=== PATIENT | female | born 1950 | race Caucasian/White ===

== ENCOUNTER 2018-10-21 16:57 | Inpatient (IN) ==
--- NOTE | 2018-10-21 17:11 | Emergency Department Note ---
Disposition Clinical Impression: Altered mental status Qualifiers: Altered mental status type: unspecified Qualified Code(s): R41.82 - Altered mental status, unspecified Disposition: Admitted As Inpatient Condition: Good Time of Disposition: 20:52 General Adult HPI - General Chief complaint: ED Neuro Symptoms/Deficit Stated complaint: Neuro Time Seen by Provider: 10/21/18 17:05 - History of Present Illness Pain Scale: 0 - Related Data Home Medications Medication Instructions Recorded Confirmed Glimepiride [Amaryl] 2 mg PO QAM 10/21/18 10/21/18 Pravastatin Sodium [Pravachol] 40 mg PO DAILY 10/21/18 10/21/18 Allergies Allergy/AdvReac Type Severity Reaction Status Date / Time No Known Allergies Allergy Verified 10/21/18 17:57 Past Medical History - Past Medical History Medical history: Reports: diabetes, hypertension - Social History Smoking Status: Never smoker Alcohol use: Reports: none Drug use: Reports: none Course Vital Signs Temperature 98.1 F 10/21/18 16:59 Pulse Rate 111 10/21/18 16:59 Respiratory Rate 20 10/21/18 16:59 Blood Pressure 103/71 10/21/18 16:59 O2 Sat by Pulse Oximetry 97 10/21/18 16:59 Temperature 97.5 F L 10/21/18 19:31 Pulse Rate 85 10/21/18 19:31 Respiratory Rate 16 10/21/18 19:31 Blood Pressure 117/77 10/21/18 19:31 O2 Sat by Pulse Oximetry 97 10/21/18 19:31 Oxygen Delivery Oxygen Delivery Room Air Medical Decision Making - Lab Data Result diagrams: 10/21/18 17:03 10/21/18 17:03 Lab Results 10/21/18 10/21/18 10/21/18 Range/Units 17:03 17:03 17:03 WBC 19.1 H (4.3-11.1) K/mcL RBC 4.82 (3.82-4.97) M/mcL Hgb 14.4 (11.5-15.4) g/dL Hct 42.9 (35.3-44.9) % MCV 89.0 (83.0-100.0) fL MCH 29.9 (28.0-33.3) pg MCHC 33.6 (31.6-35.5) g/dL RDW 12.3 (11.5-14.5) % Plt Count 273 (140-400) K/mcL MPV 9.6 (9.4-12.4) fL PT 15.0 H (9.4-12.1) Seconds INR 1.3 APTT 27.4 (26.0-36.0) Seconds Sodium 133 L (136-145) mEq/L Potassium 5.1 (3.5-5.1) mEq/L Chloride 101 (98-107) mEq/L Carbon Dioxide 20 L (23-29) mEq/L BUN 21 (8-23) mg/dL Creatinine 0.71 (0.60-1.20) mg/dL Est GFR ( Amer) > 60 (> 60) Est GFR (Non-Af Amer) > 60 (> 60) BUN/Creatinine Ratio 30 H (6-26) Glucose 135 H (70-105) mg/dL Calculated Osmolality 281 (280-300) Calcium 9.5 (8.6-10.3) mg/dL Total Bilirubin 1.4 H (0.3-1.0) mg/dL Direct Bilirubin 0.2 (0.0-0.2) mg/dL Indirect Bilirubin 1.2 (0.0-1.2) mg/dL AST 40 H (13-39) Units/L ALT 23 (7-52) Units/L Alkaline Phosphatase 93 (34-104) Units/L Troponin I < 0.03 (< 0.04) ng/mL Serum Total Protein 7.1 (6.4-8.9) g/dL Albumin 3.6 (3.5-5.7) g/dL Globulin 3.5 (2.4-3.5) g/dL Albumin/Globulin Ratio 1.0 L (1.1-2.2) Critical Care Time Critical Care Time: Yes Total Critical Care Time: 30 Attestation: The high probability of a clinically significant, sudden or life threatening deterioration of the [] system(s) required my full and direct attention, intervention and personal management. The aggregate critical care time was [] minutes. This time is in addition to time spent performing reported procedures but includes the following: [] Data Review and interpretation [] Patient assessment and monitoring of vital signs [] Documentation [] Medication orders and management Attestation Statement - Attestation Attestation: I reviewed the residents documentation and agree with the residents assessment and plan of care. I have personally had face to face time with the patient. (Brief History, Brief Exam, and MDM) I personally supervised and was present for the quezada/critical portions of the following procedures completed by the resident: (add procedures performed here). [id number] time provided I attest to supervising the resident physician's interpretation of the ECG Patient presents with right arm weakness. Symptoms started prior to her falling back to sleep at noon which is 5 hours prior to arrival. The patient does have a right arm drift on exam. Stroke alert activated
--- NOTE | 2018-10-21 17:15 | Emergency Department Note ---
Disposition Clinical Impression: Altered mental status Qualifiers: Altered mental status type: unspecified Qualified Code(s): R41.82 - Altered mental status, unspecified Disposition: Admitted As Inpatient Condition: Good Time of Disposition: 18:37 Neuro HPI - General Chief Complaint: ED Neuro Symptoms/Deficit Stated Complaint: Neuro Time Seen by Provider: 10/21/18 17:05 Source: patient Mode of arrival: private vehicle Limitations: no limitations Nursing Notes Reviewed: Yes Vital Signs Reviewed: Yes - History of Present Illness HPI Narrative: 68 yo woman with LKW approximately 12 noon today 10/21/18 who reported feeling a "heaviness" in her right arm and dropping objects without meaning to after waking from a nap today. She also feels lightheaded and has had decreased appetite since Sunday. She denies CP, SOB, LOC, disorientation, N/V, numbness or tingling anywhere. She denies recent illness, dysuria, symptoms of UTI and velasquez es to defecation. She has no known cardiac issues. No history of TIA or stroke or autoimmune disor ders. She traveled to [place] and [place] in July. No rash or bites. No dietary changes. She is not on anticoagulation. Patient has never smoked. - Related Data Home Medications: Home Medications Medication Instructions Recorded Confirmed Glimepiride [Amaryl] 2 mg PO QAM 10/21/18 10/21/18 Pravastatin Sodium [Pravachol] 40 mg PO DAILY 10/21/18 10/21/18 Allergies/Adverse Reactions: Allergies Allergy/AdvReac Type Severity Reaction Status Date / Time No Known Allergies Allergy Verified 10/21/18 17:57 All systems ED: reviewed and negative except as stated. Neurological: Reports: weakness (Right arm), other (Lightheadedness) Past Medical History - Past Medical History Attestation: Yes The following information was validated with the patient. Source: patient, old records reviewed Medical history: Reports: diabetes, hypertension - Social History Smoking Status: Never smoker Alcohol use: Reports: none Drug use: Reports: none Physical Exam PE Gen: AOx3, NAD HEENT: No lymphadenopathy. Pupils equal and reactive. Cardio: Regular rate and rhythm, no murmur, no peripheral edema, good perfusion to all extremities, no cyanosis Resp: Equal breath sounds bilaterally, no wheeze, no cough GI: Abdomen soft, nondistended, nontender to palpation. No ecchymoses, no rash. : No suprapubic tenderness or distention MSK: Normal ROM, no joint swelling or erythema Neuro: CNI-XII intact, strength and sensation WNL. Mild drift of right arm within 10 seconds only focal deficit on exam. Psych: Appropriate affect Course Course Narrative: VS stable. LKW approximately 5.[address] head ordered to evaluate for stroke, labs to evaluate for other causes of lightheadness and right arm "heaviness." - Consultations Consultation #1: [facility] neurologist consulted via tele. Slight deficit noted in holding right arm up. No acute intervention warranted. Time: 17:39 Vital Signs Temperature 98.1 F 10/21/18 16:59 Pulse Rate 111 10/21/18 16:59 Respiratory Rate 20 10/21/18 16:59 Blood Pressure 103/71 10/21/18 16:59 O2 Sat by Pulse Oximetry 97 10/21/18 16:59 Temperature 98.1 F 10/21/18 17:04 Pulse Rate 97 10/21/18 17:10 Respiratory Rate 17 10/21/18 18:51 Blood Pressure 111/83 10/21/18 18:51 O2 Sat by Pulse Oximetry 99 10/21/18 17:04 Oxygen Delivery Oxygen Delivery Room Air Neuro Symptoms/Deficit - MDM Narrative Medical decision making narrative: CT head negative for acute ischemia or hemorrhage. Glucose WNL. Leukocytosis to 19K; UA pending. Plan to admit patient for further workup. Patient agreed with plan and hospitalist accepted admit. - Medical Records Medical records reviewed: Yes I reviewed the patient's medical records. - Lab Data Lab results reviewed: Yes I reviewed the patient's lab results. Result diagrams: 10/21/18 17:03 10/21/18 17:03 Lab Results 10/21/18 10/21/18 10/21/18 Range/Units 17:03 17:03 17:03 WBC 19.1 H (4.3-11.1) K/mcL RBC 4.82 (3.82-4.97) M/mcL Hgb 14.4 (11.5-15.4) g/dL Hct 42.9 (35.3-44.9) % MCV 89.0 (83.0-100.0) fL MCH 29.9 (28.0-33.3) pg MCHC 33.6 (31.6-35.5) g/dL RDW 12.3 (11.5-14.5) % Plt Count 273 (140-400) K/mcL MPV 9.6 (9.4-12.4) fL PT 15.0 H (9.4-12.1) Seconds INR 1.3 APTT 27.4 (26.0-36.0) Seconds Sodium 133 L (136-145) mEq/L Potassium 5.1 (3.5-5.1) mEq/L Chloride 101 (98-107) mEq/L Carbon Dioxide 20 L (23-29) mEq/L BUN 21 (8-23) mg/dL Creatinine 0.71 (0.60-1.20) mg/dL Est GFR ( Amer) > 60 (> 60) Est GFR (Non-Af Amer) > 60 (> 60) BUN/Creatinine Ratio 30 H (6-26) Glucose 135 H (70-105) mg/dL Calculated Osmolality 281 (280-300) Calcium 9.5 (8.6-10.3) mg/dL Total Bilirubin 1.4 H (0.3-1.0) mg/dL Direct Bilirubin 0.2 (0.0-0.2) mg/dL Indirect Bilirubin 1.2 (0.0-1.2) mg/dL AST 40 H (13-39) Units/L ALT 23 (7-52) Units/L Alkaline Phosphatase 93 (34-104) Units/L Troponin I < 0.03 (< 0.04) ng/mL Serum Total Protein 7.1 (6.4-8.9) g/dL Albumin 3.6 (3.5-5.7) g/dL Globulin 3.5 (2.4-3.5) g/dL Albumin/Globulin Ratio 1.0 L (1.1-2.2) - Radiology Data Radiology results reviewed: Yes I reviewed the patient's radiology results. Head CT 10/21/18 17:09 IMPRESSION: No acute intracranial abnormality. Findings were discussed with Dr. Burris At 5:24 pm on 10/21/2018. D/ / James Lala MD / James Lala MD Interpreting Provider: James Lala MD - EKG Data EKG attestation: Yes I reviewed and interpreted this EKG. EKG shows normal: sinus rhythm Rate: normal Rhythm: NSR When compared to previous EKG there are: previous EKG unavailable Interpretation: normal EKG NIH Stroke Scale - Level of Consciousness LOC: Alert - LOC Questions LOC Questions: Answers both correctly - LOC Commands LOC Commands: Performs both correctly - Best Gaze Best Gaze: Normal - Visual Visual: No visual loss - Facial Palsy Facial Palsy: Normal - Motor Arms Motor Arm-Left: No drift for 10 seconds Motor Arm-Right: Drift, does NOT hit bed - Motor Legs Motor Leg-Left: No drift for 5 seconds Motor Leg-Right: No drift for 5 seconds - Limb Ataxia Limb Ataxia: Normal, No Ataxia - Sensory Sensory: Normal - Best Language Best Language: No aphasia - Dysarthria Dysarthria: Normal - Extinction and Inattention Extinction and Inattention: Normal - NIHSS Total Score NIHSS Total Score: 1 TPA Checklist - LKW: 3-4.5 hrs Add. Warnings/Precautions Patient/family understanding: The patient/family members have been counseled and understood the risk, benefit, and alternatives of treatment.
[2018-10-21 17:16] LABS: Hematocrit 42.9 % (35.3-44.9); Hemoglobin 14.4 g/dL (11.5-15.4); Mean Corpuscular HGB Conc 33.6 g/dL (31.6-35.5); Mean Corpuscular Hemoglobin 29.9 pg (28.0-33.3); Mean Platelet Volume 9.6 fL (9.4-12.4); Platelet Count 273 K/mcL (140-400); Red Blood Count 4.82 M/mcL (3.82-4.97); Red Cell Distribution Width 12.3 % (11.5-14.5); White Blood Count 19.1 K/mcL (4.3-11.1)
[2018-10-21 17:28] LABS: INR 1.3
[2018-10-21 17:31] LABS: Activated Partial Thrombo Time 27.4 Seconds (26.0-36.0)
[2018-10-21 17:46] LABS: Troponin I < 0.03 ng/mL (< 0.04)
[2018-10-21 18:13] LABS: Alanine Aminotransferase 23 Units/L (7-52); Albumin 3.6 g/dL (3.5-5.7); Alkaline Phosphatase 93 Units/L (34-104); Aspartate Amino Transferase 40 Units/L (13-39); BUN/Creatinine Ratio 30 (6-26); Bilirubin,Direct 0.2 mg/dL (0.0-0.2); Bilirubin,Indirect 1.2 mg/dL (0.0-1.2); Bilirubin,Total 1.4 mg/dL (0.3-1.0); Blood Urea Nitrogen 21 mg/dL (8-23); Calcium 9.5 mg/dL (8.6-10.3); Carbon Dioxide 20 mEq/L (23-29); Chloride 101 mEq/L (98-107); Globulin 3.5 g/dL (2.4-3.5); Glucose 135 mg/dL (70-105); Osmolality,Calculated 281 (280-300); Potassium 5.1 mEq/L (3.5-5.1); Sodium 133 mEq/L (136-145); Total Protein 7.1 g/dL (6.4-8.9); eGFR For African Americans > 60 (> 60); eGFR For Non-African Americans > 60 (> 60)
[2018-10-21 20:53] LABS: Bilirubin,Urine Negative (Negative); Blood,Urine Moderate (Negative); Clarity,Urine Cloudy (Clear); Color,Urine Yellow (Yellow); Glucose,Urine (UA) Normal (Normal); Ketones,Urine 15 mg/dL (Negative); Leukocyte Esterase,Urine Large (Negative); Nitrite,Urine Positive (Negative); PH,Urine 6.5 pH Units (5.0-8.0); Protein,Urine Trace mg/dL (Neg-Trace); Specific Gravity,Urine 1.007 (1.010-1.025)
[2018-10-21 20:55] LABS: Bacteria,Urine Many per hpf (None-Few); Hyaline Casts,Urine None Seen per lpf (None-Few); Squamous Epithelial Cell,Urine Many per lpf (None-Few); WBC,Urine TNTC per hpf (0-3)
[2018-10-21 21:05] LABS: Yeast,Urine Few per hpf (None Seen)
[2018-10-22] MEDS ORDERED: Naloxone 0.4 MG/ML INJ IVP PRN (00:04)
[2018-10-22] MEDS ORDERED: *HR* Dextrose 50 % in Water (Syg) 50 ML SYRINGE IVP PRN (00:06)
[2018-10-22] MEDS ORDERED: D5% in Water 1,000 ML IVC PRN (00:06)
[2018-10-22] MEDS ORDERED: Dextrose Gel 15 GM/37.5 ML TUBE PO PRN ×2 (00:06)
[2018-10-22] MEDS ORDERED: Gadolinium Contrast Agent (WT Based) IV PRN (00:09)
--- NOTE | 2018-10-22 00:40 | Internal Med History&Physical ---
Date of Encounter: 10/21/18 Time of Encounter: 23:20 Internal Medicine - H&P: HPI Chief complaint: Right upper extremity weakness Admitted From: Emergency Dept Plans for Post Hospital Care: Home History of present illness: Ms. Oakes is a 68 year old female Patient presented to the emergency department after experiencing right arm heaviness that began in the afternoon after she awoke from a nap. She says that she had been experiencing dizziness and lightheadedness that started 2 days ago. She spent most of the weekend in bed. She continued to have some dizziness and then after she had woken up during the afternoon on the day of her admission she noted this right arm heaviness. She has never had symptoms like this before. Her symptoms improve when she lays down however her arm still has a heaviness sensation. She has difficulty controlling it. She came to the emergency department for further evaluation. Emergency department vital signs within normal limits aside from elevated pulse of 111 and respiratory rate of 20. CBC notable for white count of 19.1 BMP notable for a glucose of 135. Total bilirubin elevated at 1.4 AST 40 ALT 23 Alkaline phosphatase 93. Initial troponin undetectable. Urinalysis showed low specific gravity, positive nitrite, large leukocyte esterase, numerous white blood cells. There is also many urine bacteria seen. EKG showed sinus rhythm, rate 93, QTC 443. No ischemic changes. CT head showed no acute intracranial abnormality. In the emergency department a stroke alert was called. The patient was outside of the when no for intervention. She was evaluated by [facility] neurology via telemetry stroke robot. They recommended diagnostic lab and workup and to be admitted to the hospital for further management. Upon my evaluation, patient is resting currently in hospital in no acute distress. She denies chest pain, abdominal pain, nausea, vomiting, diarrhea and constipation. She also denies dysuria. She states that her right arm heaviness has improved but is still different than her left arm. She denies difficulty swallowing. She has never had urinary tract infection before either. She denies significant family medical history. She is a full code. Past Med Surg Social Fam HX - Past Medical History Medical history: diabetes, hypertension - Past Surgical History Surgical History: no surgical history - Social History Smoking Status: Never smoker Smokeless Tobacco Status: No Alcohol use: none Drug use: none Internal Medicine - H&P: Meds Adipex-P 10/21/18 [History] Glimepiride [Amaryl] 2 mg PO QAM 10/21/18 [History] Pravastatin Sodium [Pravachol] 40 mg PO DAILY 10/21/18 [History] Allergy/AdvReac Type Severity Reaction Status Date / Time No Known Allergies Allergy Verified 10/21/18 17:57 All Systems PM: A 10-system review of systems was performed and is negative for pertinent findings except as documented above in the HPI. - Constitutional Vitals: Temp Pulse Resp BP Pulse Ox 98.2 F 104 16 112/76 96 10/21/18 23:29 10/21/18 23:29 10/21/18 23:29 10/21/18 23:29 10/21/18 23:29 General appearance: Present: cooperative, A&O X 3, pleasant, no acute distress, answers questions appropriately Exam: - - Head Head exam: Present: normal inspection - Eye Eye exam: Present: EOMI, normal appearance - ENT ENT exam: Present: normal exam - Neck Neck exam general surgery: Present: full ROM, supple. Absent: tenderness - Respiratory Respiratory exam: Present: CTAB. Absent: accessory muscle use, decreased breath sounds, rales, respiratory distress, rhonchi, wheezes - Cardiovascular Cardiovascular exam: Present: RRR. Absent: diastolic murmur, systolic murmur - GI/Abdominal GI/Abdominal exam: Present: normal bowel sounds, soft. Absent: tenderness - Extremities Exam Extremities exam: Present: warm, radial pulses palpable and symmetrical. Absent: calf tenderness, pedal edema, tenderness - Neurological Exam Neurological exam: Present: alert, CN II-XII intact, oriented X3, no focal deficits, strengths equal and symetr throughout, pronater drift. Absent: altered, motor sensory deficit, facial droop, speech deficit - Skin Skin exam: Present: dry, normal color, warm Internal Med - H&P Results - Labs CBC & Chem 7: 10/22/18 01:49 10/22/18 01:49 Labs: Short CBC 10/21/18 Range/Units 17:03 WBC 19.1 H (4.3-11.1) K/mcL Hgb 14.4 (11.5-15.4) g/dL Hct 42.9 (35.3-44.9) % Plt Count 273 (140-400) K/mcL BMP 10/21/18 17:03 Sodium 133 L Potassium 5.1 Chloride 101 Carbon Dioxide 20 L BUN 21 Creatinine 0.71 Glucose 135 H Calcium 9.5 Cardiac Enzymes 10/21/18 Range/Units 17:03 Troponin I < 0.03 (< 0.04) ng/mL Liver Function 10/21/18 Range/Units 17:03 Total Bilirubin 1.4 H (0.3-1.0) mg/dL Direct Bilirubin 0.2 (0.0-0.2) mg/dL AST 40 H (13-39) Units/L ALT 23 (7-52) Units/L Alkaline Phosphatase 93 (34-104) Units/L Albumin 3.6 (3.5-5.7) g/dL Urine 10/21/18 Range/Units 20:40 Urine Color Yellow (Yellow) Urine Clarity Cloudy A (Clear) Urine pH 6.5 (5.0-8.0) pH Units Ur Specific [place] 1.007 L (1.010-1.025) Urine Protein Trace (Neg-Trace) mg/dL Urine Glucose (UA) Normal (Normal) mg/dL - Impressions ITS Impressions Head CT 10/21/18 17:09 IMPRESSION: No acute intracranial abnormality. Findings were discussed with Dr. Burris At 5:24 pm on 10/21/2018. D/ / James Lala MD / James Lala MD Interpreting Provider: James Lala MD - Assessment and Plan (1) Right arm weakness Current Visit: Yes Status: Acute Assessment and plan: Possibly secondary to CVA. Management as below. (2) CVA (cerebral vascular accident) Current Visit: Yes Status: Acute Assessment and plan: Patient was evaluated by neurology [facility]. Recommended patient have echocardiogram, MRI head, MRA head and neck. They also recommended that the profile and A1c. Patient has passed bedside swallow eval. Obtain MRIs as requested follow-up results Lipid panel A1c PT and OT in the morning Qualifiers: CVA mechanism: unspecified Qualified Code(s): I63.9 - Cerebral infarction, unspecified (3) Diabetes Current Visit: Yes Status: Acute Assessment and plan: Patient is not an insulin dependent diabetic Monitor sugars ACHS Diabetic diet Low dose insulin sliding scale as needed Hold home meds. Check A1c in the morning Qualifiers: Diabetes mellitus type: type 2 Diabetes mellitus ferry terminal agent insulin use: without group home use Diabetes mellitus complication status: with hyperglycemia Qualified Code(s): E11.65 - Type 2 diabetes mellitus with hyperglycemia (4) Urinary tract infection Current Visit: Yes Status: Acute Assessment and plan: Patient's urinalysis positive for urinary tract infection. Likely related to her elevated white count. Started on ceftriaxone Follow-up urine culture when available Monitor for worsening signs of infection. Qualifiers: Urinary tract infection type: site unspecified Hematuria presence: with hematuria Qualified Code(s): N39.0 - Urinary tract infection, site not specified; R31.9 - Hematuria, unspecified (5) Elevated bilirubin Current Visit: Yes Status: Acute Assessment and plan: Patient has history of mildly elevated bilirubins in the past, she has slightly elevated AST as well. Patient denies history of liver disease. Repeat total bilirubin was decreased at 1.1. Continue to monitor (6) DVT prophylaxis Current Visit: Yes Status: Acute Assessment and plan: Subcutaneous heparin - Time Spent With Patient Total time spent is greater than 50% in coordination of care (as documented) at patient's floor/unit and/or counseling patient: Greater than 35 minutes
[2018-10-22] MEDS: cefTRIAXone 1,000 MG in Water for inj. (sterile) 10 ML IVP SCH (01:16)
[2018-10-22] MEDS: 0.9 % Sodium Chloride 1,000 ML IVC SCH ×2 (01:16→10:57)
[2018-10-22 02:20] LABS: Hematocrit 39.3 % (35.3-44.9); Hemoglobin 12.8 g/dL (11.5-15.4); Mean Corpuscular HGB Conc 32.6 g/dL (31.6-35.5); Mean Corpuscular Hemoglobin 29.9 pg (28.0-33.3); Mean Corpuscular Volume 91.8 fL (83.0-100.0); Mean Platelet Volume 9.8 fL (9.4-12.4); Platelet Count 245 K/mcL (140-400); Red Blood Count 4.28 M/mcL (3.82-4.97); Red Cell Distribution Width 12.2 % (11.5-14.5); White Blood Count 16.3 K/mcL (4.3-11.1)
[2018-10-22 02:27] LABS: Estimated Average Glucose 137 mg/dl
[2018-10-22 02:45] LABS: Alanine Aminotransferase 21 Units/L (7-52); Albumin 3.2 g/dL (3.5-5.7); Albumin/Globulin Ratio 0.9 (1.1-2.2); Alkaline Phosphatase 89 Units/L (34-104); Aspartate Amino Transferase 20 Units/L (13-39); BUN/Creatinine Ratio 32 (6-26); Bilirubin,Total 1.1 mg/dL (0.3-1.0); Blood Urea Nitrogen 21 mg/dL (8-23); Calcium 8.9 mg/dL (8.6-10.3); Carbon Dioxide 22 mEq/L (23-29); Chloride 102 mEq/L (98-107); Chol/HDL Ratio 2.8 (0-4.9); Cholesterol 105 mg/dL (< 200); Globulin 3.4 g/dL (2.4-3.5); Glucose 138 mg/dL (70-105); HDL Cholesterol 38 mg/dL (40-59); LDL Cholesterol,Calculated 55 mg/dL (0-99); Magnesium 1.8 mg/dL (1.6-2.6); Osmolality,Calculated 287 (280-300); Phosphorous 2.8 mg/dL (2.7-4.5); Potassium 3.6 mEq/L (3.5-5.1); Sodium 136 mEq/L (136-145); Total Protein 6.6 g/dL (6.4-8.9); Triglycerides 61 mg/dL (< 150); eGFR For African Americans > 60 (> 60); eGFR For Non-African Americans > 60 (> 60)
[2018-10-22] MEDS: *HR* Heparin 5,000 UNIT/ML VIAL SQ SCH ×2 (06:41→18:35)
[2018-10-22] MEDS: Insulin LISPRO 300 UNITS/3 ML VIAL SQ SCH ×4 (07:52→20:50)
[2018-10-22] MEDS ORDERED: Aspirin 325 MG TABLET PO ONE (09:20)
--- NOTE | 2018-10-22 09:24 | Event Note ---
Date of Encounter: 10/22/18 Time of Encounter: 09:22 Ms. Oakes is a 68 year old female Patient presented to the emergency department after experiencing right arm heaviness that began in the afternoon after she awoke from a nap. She says that she had been experiencing dizziness and lightheadedness that started 2 days ago. She spent most of the weekend in bed. She continued to have some dizziness and then after she had woken up during the afternoon on the day of her admission she noted this right arm heaviness. She has never had symptoms like this before. Her symptoms improve when she lays down however her arm still has a heaviness sensation. She has difficulty controlling it. She came to the emergency department for further evaluation. Seen and examined in the morning. She reported right side weakness has improved. Denies numbness/tingling/ataxia/aphasia/dysphagia. Pending echocardiogram and carotid Doppler, pending MRI/MRA of brain.
--- NOTE | 2018-10-22 16:07 | Electrocardiograph Report ---
[place] [id number] Test Date: 2018-10-21 Pat Name: Kaylee Oakes Department: EXAM10 Room: 3B37 Gender: F Abalone Diver: : 1950 Requested By: Luis Canchola Order Number: [id number] Reading MD: Celestine Choudhary Measurements Intervals [place] Rate: 93 P: 24 OR: 181 QRS: 0 QRSD: 97 T: 51 QT: 356 QTc: 443 Interpretive Statements Sinus rhythm Abnormal R-wave progression, early transition Electronically Signed On 10-22-2018 16:05:33 EDT by Celestine Choudhary
[2018-10-22] MEDS: Acetaminophen 325 MG TABLET PO PRN (16:29)
[2018-10-22] MEDS: Nystatin POWDER 30 GM BOTTLE TP SCH ×2 (18:34→20:29)
[2018-10-23 04:32] LABS: Hematocrit 38.3 % (35.3-44.9); Hemoglobin 12.6 g/dL (11.5-15.4); Mean Corpuscular HGB Conc 32.9 g/dL (31.6-35.5); Mean Corpuscular Hemoglobin 29.4 pg (28.0-33.3); Mean Corpuscular Volume 89.5 fL (83.0-100.0); Mean Platelet Volume 9.7 fL (9.4-12.4); Platelet Count 278 K/mcL (140-400); Red Blood Count 4.28 M/mcL (3.82-4.97); Red Cell Distribution Width 12.4 % (11.5-14.5); White Blood Count 17.4 K/mcL (4.3-11.1)
[2018-10-23 04:48] LABS: BUN/Creatinine Ratio 28 (6-26); Blood Urea Nitrogen 18 mg/dL (8-23); Calcium 8.6 mg/dL (8.6-10.3); Carbon Dioxide 25 mEq/L (23-29); Chloride 105 mEq/L (98-107); Glucose 157 mg/dL (70-105); Osmolality,Calculated 291 (280-300); Potassium 3.8 mEq/L (3.5-5.1); Sodium 138 mEq/L (136-145); eGFR For African Americans > 60 (> 60); eGFR For Non-African Americans > 60 (> 60)
[2018-10-23] MEDS: *HR* Heparin 5,000 UNIT/ML VIAL SQ SCH ×2 (05:58→18:01)
[2018-10-23 08:15] LABS: Chol/HDL Ratio 3.5 (0-4.9); Cholesterol 91 mg/dL (< 200); HDL Cholesterol 26 mg/dL (40-59); LDL Cholesterol,Calculated 49 mg/dL (0-99); Triglycerides 80 mg/dL (< 150)
--- NOTE | 2018-10-23 08:47 | Neurology - Consult Note ---
<Froy Apodaca - Last Filed: 10/23/18 11:17> Date of Encounter: 10/23/18 Time of Encounter: 09:32 Assessment and Plan (1) CVA (cerebral vascular accident) Current Visit: Yes Status: Acute - Patient presents with symptoms of right arm weakness 5 hours - Evidence of acute CVA on MRI/MRA of the head and neck without evidence of stenosis or occlusion - Carotid ultrasounds showed bilateral nonstenotic plaques - Risk factors include diabetes, hypertension. - Hgb A1c of 6.4%. Lipid panel shows a mildly low HDL - Echocardiogram also showed evidence of a patent foramen ovale with moderate right to left shunt -- The CVA does not appear to be embolic however. - Clinically, patient reports much improvement of her weakness but does still demonstrate a very mild right arm drift. NIH 1 - PT/OT has evaluated the patient and recommends outpatient therapy - Patient started on aspirin, statin. Of note she does admit to home aspirin and pravastatin Plan - Recommend continue PT/OT to improve strength - Minimalize risk factors including continued control of HTN and DM - Regarding medications, recommend continue aspirin but at full dose of 325mg and high intensity statin if tolerated. - Regarding the PFO, will defer surgical recommendations to primary team, however this does not appear to be an embolic stroke given location, pattern and appearance. She is lower risk for DVT with no symptoms and no history of arrythmia therefore will not recommend anticoagulation at this time. - Neurology will sign off at this time. Please reconsult or call with further questions. Thank you for allowing us to participate in Ms. Oakes' care. Qualifiers: CVA mechanism: unspecified Qualified Code(s): I63.9 - Cerebral infarction, unspecified (2) Patent foramen ovale Current Visit: Yes Status: Acute - As noted above on echocardiogram History of Present Illness Chief complaint: right arm "heaviness" HPI: Ms. Oakes is a 68 year old female with past medical history of diabetes and hypertension who presents to the emergency department with complaint of right arm heaviness as well as fatigue and lightheadedness starting 2 days prior to admission. Neurology was consulted for concerns of CVA. Patient states that on day of admission she laid down for a nap and woke up with her right arm feeling weak and heavy. She has never experienced symptoms like this in the past. She denies any symptoms of numbness, tingling, other weakness, vision or auditory changes. She has otherwise felt well with no symptoms of chest pains, difficulty breathing, recent illness, recent travel. She has had no exacerbating or relieving symptoms. Patient states that she normally does have fairly good control of her blood sugars and has never smoked. In the emergency department vital signs were significant for an elevated heart rate of 111 and a respiratory rate of 20. Laboratory results were significant for leukocytosis of 19.1, bicarbonate mildly low at 20 and sodium of 133. Total bilirubin was also mildly elevated at 1.4. Initial head CT did show no acute intracranial abnormality. [facility] stroke alert was called and medical management was advised. Further workup including head, neck MRI/MRA showed a small area of acute ischemic infarction in the high posterior left frontal lobe. It also showed non-stenosis of the vasculature. Echocardiogram did show evidence of a patent foramen ovale with moderate right to left shunt. [facility] and are currently recommending outpatient therapy. At time of my interview, patient reports that her symptoms have greatly improved. Her right arm she feels has full strength although still does have a very minor drift. She denies any symptoms of numbness, tingling. Past medical history: As above Past surgical history: Denies Social history: Never smoker, denies alcohol or drug use Family history: Noncontributory Past Med Surg Social Fam HX - Past Medical History Medical history: diabetes, hypertension - Past Surgical History Surgical History: no surgical history - Social History Smoking Status: Never smoker Smokeless Tobacco Status: No Alcohol use: none Drug use: none Medications and Allergies Adipex-P 10/21/18 [History] Glimepiride [Amaryl] 2 mg PO QAM 10/21/18 [History] Pravastatin Sodium [Pravachol] 40 mg PO DAILY 10/21/18 [History] Allergy/AdvReac Type Severity Reaction Status Date / Time No Known Allergies Allergy Verified 10/21/18 17:57 All Systems: The remainder of the systems were reviewed and are negative Review of Systems: - Constitutional: Admits to fatigue. Denies fevers, chills, weight loss, - Head/Neck: Denies METCALF, neck stiffness - EENT: Denies vision changes/blurriness, tinnitus, auditory changes, rhinorrhea, congestion, - CVS: Denies chest pain, palpitations, FRIEDMAN, - Pulm: Denies SOB, cough, sputum - GI: Denies abdominal pain, nausea, vomiting, diarrhea, constipation, - MSK: Admits to weakness Denies joint pain, limited ROM - Skin: Denies rashes, ulcers, color changes, - Neuro: Denies METCALF, paresthesias, focal deficits, ataxia, Physical Examination - Vital Signs Vital Signs: Initial Vital Signs Temp Pulse Resp BP Pulse Ox 98.1 F 111 20 103/71 97 10/21/18 16:59 10/21/18 16:59 10/21/18 16:59 10/21/18 16:59 10/21/18 16:59 - Constitutional General appearance: comfortable, younger than stated age - Neurologic Sensorimotor examination: intact Detailed motor examination: grossly full strength in all extremities Motor examination - right side: 4/5: hip flexors, tibialis Anterior, 5/5: deltoids, biceps, triceps, wrist flexion, wrist extension, signal repairer, toe extension (EHL), plantarflexion Motor examination - left side: 4/5: hip flexors, tibialis Anterior, 5/5: deltoids, biceps, triceps, signal repairer, toe extension (EHL), plantarflexion Detailed sensory examination: intact Posture: other (none) Reflex and gait examination: intact Reflexes: Biceps: 2+, Brachioradialis: 2+, Patella: 2+ Mental Status Examination: awake, alert, oriented to person, oriented to place, oriented to time, follows commands appropriately, answers questions appropriately, no agnosia, no aphasia, no aproxia Cranial nerve examination: PERRL, EOMI, sensory to face intact, mastication intact, no facial asymmetry is present, no dysarthria, hearing is intact symmetrically, soft palate elevates bilaterally upon phonation, flexes SCM and trapezius muscles symmetrically with full power, tongue protrudes midline, no atrophy or facial fasiculations present Cerebellar examination: no dysmetria, performs finger to nose and heel to maloney symmetrically without ataxia Ataxia: right upper extremity (mild arm drift when held out) Results - Laboratory Findings CBC and BMP: 10/23/18 03:58 10/23/18 03:58 Abnormal lab findings: Abnormal lab results WBC 17.4 K/mcL (4.3-11.1) H 10/23/18 03:58 PT 15.0 Seconds (9.4-12.1) H 10/21/18 17:03 Sodium 133 mEq/L (136-145) L 10/21/18 17:03 Carbon Dioxide 22 mEq/L (23-29) L 10/22/18 01:49 BUN/Creatinine Ratio 28 (6-26) H 10/23/18 03:58 Glucose 157 mg/dL (70-105) H 10/23/18 03:58 POC Glucose 159 mg/dL (70-99) H 10/22/18 19:33 Hemoglobin A1c 6.4 % (-5.6) H 10/22/18 01:49 Total Bilirubin 1.1 mg/dL (0.3-1.0) H 10/22/18 01:49 AST 40 Units/L (13-39) H 10/21/18 17:03 Albumin 3.2 g/dL (3.5-5.7) L 10/22/18 01:49 Albumin/Globulin Ratio 0.9 (1.1-2.2) L 10/22/18 01:49 HDL Cholesterol 26 mg/dL (40-59) L 10/23/18 03:58 Urine Clarity Cloudy (Clear) A 10/21/18 20:40 Ur Specific [place] 1.007 (1.010-1.025) L 10/21/18 20:40 Urine Ketones 15 mg/dL (Negative) H 10/21/18 20:40 Urine Blood Moderate (Negative) H 10/21/18 20:40 Urine Nitrite Positive (Negative) A 10/21/18 20:40 Urine Urobilinogen 2.0 mg/dL (Normal) H 10/21/18 20:40 Ur Leukocyte Esterase Large (Negative) H 10/21/18 20:40 Urine Microscopic WBC TNTC per hpf (0-3) H 10/21/18 20:40 Ur Squamous Epith Cells Many per lpf (None-Few) H 10/21/18 20:40 Urine Bacteria Many per hpf (None-Few) H 10/21/18 20:40 Urine Yeast Few per hpf (None Seen) H 10/21/18 20:40 Ur Culture Indicated? YES (NO) A 10/21/18 20:40 Consult Discharge Plan - Plan Additional Instructions: Wound care- cleanse area with soap and water in the shower daily, home health to re-pack with 1/4 in plain gauze, cover with dry dressing and tape to secure. Complete daily and prn if soiled. Referrals: Willow Aguilar CNP [Advanced Practice Nurse] - 10/29/18 4:00 pm Yadi Delgadillo CNP [Primary Care Provider] - (Appointment has been requested) <Darnell Miller - Last Filed: 10/23/18 16:52> Date of Encounter: 10/23/18 Assessment and Plan (1) CVA (cerebral vascular accident) Current Visit: Yes Status: Acute The chart Was reviewed, the patient was seen and examined independently. Patient was discussed with the neurology resident. I have personally performed a [id number] assessment of the patient and have reviewed the PA/RETURNS PROCESSOR note. My impressions are as follows: I agree with his assessment and plan as outlined above. I agree that this is a low likelihood of a cardioembolic event considering the location of the infarct as well as the pattern of periventricular white matter change. I agree with increasing to full dose aspirin 325 mg daily along with a high intensity statin and management of her diabetes. I will reevaluate her in the morning. Qualifiers: CVA mechanism: unspecified Qualified Code(s): I63.9 - Cerebral infarction, unspecified History of Present Illness HPI: Chart was reviewed, patient was seen and examined independently. Case was discussed with Dr. Apodaca I agree with his assessment of the history of present illness as documented above. MRI scan of the brain was reviewed personally she does reveal a small area of acute infarct diffusion imaging in the high posterior left frontal region. The infarct is deep into the white matter so I therefore suggest this is a small vessel event. Echocardiogram did not show evidence of a PFO with a moderate right to left shunt. However again I do not feel this was a cardioembolic phenomenon. She does have a history of diabetes and hypertension. She also has an elevated temperatures likely due to an abscessed region of the right buttock. Not convinced this has any bearing on her acute cerebral infarct. MRI/MRA scans of the head and neck were normal. All Systems: The remainder of the systems were reviewed and are negative Review of Systems: Balance of the systems review is negative. Physical Examination - Vital Signs Vital Signs: Initial Vital Signs Temp Pulse Resp BP Pulse Ox 98.1 F 111 20 103/71 97 10/21/18 16:59 10/21/18 16:59 10/21/18 16:59 10/21/18 16:59 10/21/18 16:59 - Exam Exam: General Examination: *CONSTITUTIONAL: normal *GENERAL APPEARANCE OF PATIENT appears healthy and well groomed *EYES: pupils equal, round, reactive to light and accommodation, conjunctiva clear without masses or ulcerations, fundi normal. *CARDIOVASCULAR no peripheral edema, distal temperature normal, dorsalis pedis pulses normal. Refer to vital signs Musculoskeletal: *GAIT AND STATION normal, with normal Romberg testing, no abnormalities such as broad base gait or spasticity *ASSESSMENT OF MUSCLE STRENGTH IN THE UPPER AND LOWER EXTREMITIES reveals 4/5 strength of the right deltoid, right bicep, right tricep, right signal repairer strength. She has full strength of the left upper extremity. hip flexors ,anterior tibialis, dorsoflexion of the lower extremities was normal. *MUSCLE TONE IN THE UPPER AND LOWER EXTREMITIES normal. No abnormal movements, fasciculations or atrophy identified. Neurological: *ORIENTATION to time and place *RECURRENT AND REMOTE MEMORY intact *ATTENTION AND CONCENTRATION are normal *LANGUAGE FUNCTION no significant aphasia or dysarthia was noted. *FUND OF KNOWLEDGE aware of current events, past history, vocabulary *MENTAL attention span and concentration normal. *CN II optic fundi were normal, no papilledema noted. *CN III,IV, PERRLA extraocular eye movements were full, no nystagmus and no ptosis noted. *CN V shows normal sensation and jaw opens symmetrically. *CN VII shows normal facial movement symmetrically, upper and lower bilaterally. *CN VIII shows no significant hearing loss on examination in the office. *CN IX,,X palate elevated symmetrically and normal gag reflex was noted. *CN XI normal strength in the sternocleidomastoid muscles, symmetrical shoulder shrugging. *CN XII tongue protruded in the midline, with normal strength and movement. *SENSORY EXAMINATION pinprick sensation intact, and light touch(vibration sense). *REFLEXES: deep tendon reflexes were normal and symmetrical , grade 2/4 diffusely, no pathological reflexes were noted. *CEREBELLAR TESTING normal finger to nose, heel/knee/maloney, and tandem walk. *PAIN LEVEL -0 Results - Laboratory Findings CBC and BMP: 10/23/18 03:58 10/23/18 03:58 Abnormal lab findings: Abnormal lab results WBC 17.4 K/mcL (4.3-11.1) H 10/23/18 03:58 Neutrophils # 15.2 K/mcL (1.6-8.9) H 10/23/18 03:58 Monocytes # 1.4 K/mcL (0.0-1.3) H 10/23/18 03:58 PT 15.0 Seconds (9.4-12.1) H 10/21/18 17:03 Sodium 133 mEq/L (136-145) L 10/21/18 17:03 Carbon Dioxide 22 mEq/L (23-29) L 10/22/18 01:49 BUN/Creatinine Ratio 28 (6-26) H 10/23/18 03:58 Glucose 157 mg/dL (70-105) H 10/23/18 03:58 POC Glucose 159 mg/dL (70-99) H 10/22/18 19:33 Hemoglobin A1c 6.4 % (-5.6) H 10/22/18 01:49 Total Bilirubin 1.1 mg/dL (0.3-1.0) H 10/22/18 01:49 AST 40 Units/L (13-39) H 10/21/18 17:03 Albumin 3.2 g/dL (3.5-5.7) L 10/22/18 01:49 Albumin/Globulin Ratio 0.9 (1.1-2.2) L 10/22/18 01:49 HDL Cholesterol 26 mg/dL (40-59) L 10/23/18 03:58 Urine Clarity Cloudy (Clear) A 10/21/18 20:40 Ur Specific [place] 1.007 (1.010-1.025) L 10/21/18 20:40 Urine Ketones 15 mg/dL (Negative) H 10/21/18 20:40 Urine Blood Moderate (Negative) H 10/21/18 20:40 Urine Nitrite Positive (Negative) A 10/21/18 20:40 Urine Urobilinogen 2.0 mg/dL (Normal) H 10/21/18 20:40 Ur Leukocyte Esterase Large (Negative) H 10/21/18 20:40 Urine Microscopic WBC TNTC per hpf (0-3) H 10/21/18 20:40 Ur Squamous Epith Cells Many per lpf (None-Few) H 10/21/18 20:40 Urine Bacteria Many per hpf (None-Few) H 10/21/18 20:40 Urine Yeast Few per hpf (None Seen) H 10/21/18 20:40 Ur Culture Indicated? YES (NO) A 10/21/18 20:40
[2018-10-23] MEDS ORDERED: Aspirin 81 MG TAB.CHEW PO SCH (09:00)
[2018-10-23] MEDS: cefTRIAXone 1,000 MG in Water for inj. (sterile) 10 ML IVP SCH (09:44)
[2018-10-23] MEDS: Insulin LISPRO 300 UNITS/3 ML VIAL SQ SCH ×4 (09:46→21:14)
[2018-10-23] MEDS: Nystatin POWDER 30 GM BOTTLE TP SCH ×2 (09:46→15:00)
--- NOTE | 2018-10-23 10:14 | Internal Med Progress Note ---
Hospitalist Progress Note - Encounter Date of Encounter: 10/23/18 Time of Encounter: 10:14 - Subjective Interval History: Patient was seen and examined at bedside-patient states that her right arm has returned to normal that she feels fine however overnight it appears -right buttock cellulitis had a wound opened with a large amount of foul-smelling purul ent drainage patient states it saturate her bed and her clothes that she had her take a shower. Room does have a foul odor and upon inspection patient has a small wound in crease of right buttocks with large amount of brown foul-smelling purulent drainage. Wound culture was obtained - Exam Vitals: Temp Pulse Resp BP Pulse Ox 98.4 F 86 16 96/59 95 10/23/18 07:40 10/23/18 07:40 10/23/18 07:40 10/23/18 07:40 10/23/18 07:40 Exam: Skin: Patient has a red and warm to touch hard area to right buttocks there is a small opening in the right gluteal fold with brown foul-smelling drainage Eyes: Sclera is white. There is no discharge from eyes. ENMT: Oral/pharyngeal mucosa is normal in appearance. There is no discharge from nose or ears. Respiratory: Normal breath sounds with no crackles and wheezes bilaterally. CV: Heart is regular with no gallop or murmur. GI: Abdomen is flat and soft with no palpable mass or visceromegaly. : There is no tenderness in patient's flanks bilaterally. Neuro exam: He has good strength in upper and lower extremities. He has normal eye movements. Psychiatric: He has normal affect. His thought process is appropriate to the situation. - Assessment and Plan (1) Right arm weakness Current Visit: Yes Status: Acute Assessment and Plan: Possibly secondary to CVA. Management as below. 10/23 MRI of head and brain without contrast did reveal a small acute ischemic infarct in the high posterior left frontal lobe no hemorrhage or mass effect This has improved patient has back to baseline- (2) CVA (cerebral vascular accident) Current Visit: Yes Status: Acute Assessment and Plan: Patient was evaluated by neurology [facility]. Recommended patient have echocardiogram, MRI head, MRA head and neck. They also recommended that the profile and A1c. Patient has passed bedside swallow eval. Obtain MRIs as requested follow-up results Lipid panel A1c PT and OT in the morning 10/23 MR/MR head/brain wo con IMPRESSION: 1. Small acute ischemic infarct in the high posterior left frontal lobe. No hemorrhage or mass effect. 2. Mild chronic white matter microvascular ischemic changes. 3. Normal MRA of the head. 4. Normal MRA of the neck. Carotid duplex-preliminary normal carotids Cardiac echo Impressions: LVEF 60%. Mild left ventricular diastolic dysfunction. Normal right ventricular structure and function. Mild aortic regurgitation. Mild mitral regurgitation. Mild to moderate tricuspid regurgitation. No pulmonary hypertension. PFO with moderate right to left shunt on saline contrast study. Cont ASA statin Neurology consulted Will discuss PFO with cardiology - neurology recommends no anticoagulation at this time continue with aspirin because stroke does not appear to be embolic (3) Diabetes Current Visit: Yes Status: Acute Assessment and Plan: Patient is not an insulin dependent diabetic Monitor sugars ACHS Diabetic diet Low dose insulin sliding scale as needed Hold home meds. Check A1c in the morning 10/23 Hemoglobin A1c was 6.4 -holding oral medication for now pain continue with Accu- Cheks before meals at bedtime and sliding scale insulin (4) Urinary tract infection Current Visit: Yes Status: Acute Assessment and Plan: Patient's urinalysis positive for urinary tract infection. Likely related to her elevated white count. Started on ceftriaxone Follow-up urine culture when available Monitor for worsening signs of infection. 10/23 Patient continues to have elevated white count no fever Urine culture growing E coli- placed on zosyn (5) DVT prophylaxis Current Visit: Yes Status: Acute Assessment and Plan: Subcutaneous heparin (6) Elevated bilirubin Current Visit: Yes Status: Acute Assessment and Plan: Patient has history of mildly elevated bilirubins in the past, she has slightly elevated AST as well. Patient denies history of liver disease. Repeat total bilirubin was decreased at 1.1. Continue to monitor (7) Abscess and cellulitis of gluteal region Current Visit: Yes Status: Acute Assessment and Plan: Patient has redness and warmth with firm skin to right buttocks there is a small lesion and right gluteal fold-large amount of purulent brown foul-smelling drainage-wound culture obtained and sent Patient placed on vancomycin and Zosyn Consult acute surgery for possible I&D (8) Patent foramen ovale Current Visit: Yes Status: Acute Assessment and Plan: Echocardiogram does show evidence of PFO with moderate to right to left shunt CVA does not appear to be embolic in nature and neurology recommending continuin g aspirin with no anticoagulation We will discuss with cardiology - Time Spent with Patient Total time spent is greater than 50% in coordination of care (as documented) at patient's floor/unit and/or counseling patient: Internal Medicine: Result - Labs CBC & Chem 7: 10/23/18 03:58 10/23/18 03:58 Labs: Short CBC 10/23/18 Range/Units 03:58 WBC 17.4 H (4.3-11.1) K/mcL Hgb 12.6 (11.5-15.4) g/dL Hct 38.3 (35.3-44.9) % Plt Count 278 (140-400) K/mcL BMP 10/23/18 03:58 Sodium 138 Potassium 3.8 Chloride 105 Carbon Dioxide 25 BUN 18 Creatinine 0.64 Glucose 157 H Calcium 8.6 - ABG Interpretation ABG results: PT/INR, D-dimer PT 15.0 Seconds (9.4-12.1) H 10/21/18 17:03 - Impressions Impressions Echocardiogram 10/22/18 00:06 Impressions: LVEF 60%. Mild left ventricular diastolic dysfunction. Normal right ventricular structure and function. Mild aortic regurgitation. Mild mitral regurgitation. Mild to moderate tricuspid regurgitation. No pulmonary hypertension. PFO with moderate right to left shunt on saline contrast study. Left Ventricular Wall Motion: Rest Echo Findings All wall segments showed normal motion. Findings: Study Quality * Technically adequate exam. ECG Findings * Normal sinus rhythm. Left Ventricle * LVEF 60%. * Normal LV chamber size, wall thickness and systolic function. * Mild left ventricular diastolic dysfunction. Right Ventricle * Normal right ventricular structure and function. Left Atrium * Normal left atrial size. Right Atrium * Normal right atrial size. Interatrial Septum * PFO with moderate right to left shunt on saline contrast study. Aortic Valve * Trileaflet aortic valve. * Mild aortic regurgitation. * No aortic stenosis. Mitral Valve * Normal mitral valve structure. * No mitral stenosis. * Mild mitral regurgitation. Tricuspid Valve * Normal tricuspid valve structure. * No tricuspid stenosis. * Mild to moderate tricuspid regurgitation. * Estimated RVSP is 23 mmHg. * Estimated RA pressure is 3 mmHg. * No pulmonary hypertension. Pulmonic Valve * Pulmonic valve is not well visualized. * No pulmonic stenosis. * No pulmonic regurgitation. Aorta * Mild ascending arota dilation 4cm. Pericardium * The pericardium appears normal. IVC * The IVC is not dilated. * > 50% respiratory change Brain MRI 10/22/18 00:08 IMPRESSION: 1. Small acute ischemic infarct in the high posterior left frontal lobe. No hemorrhage or mass effect. 2. Mild chronic white matter microvascular ischemic changes. 3. Normal MRA of the head. 4. Normal MRA of the neck. D/ / Fabian Weathers / Fabian Weathers Interpreting Provider: Fabian Weathers Head MRA 10/22/18 00:09 IMPRESSION: 1. Small acute ischemic infarct in the high posterior left frontal lobe. No hemorrhage or mass effect. 2. Mild chronic white matter microvascular ischemic changes. 3. Normal MRA of the head. 4. Normal MRA of the neck. D/ / Fabian Weathers / Fabian Weathers Interpreting Provider: Fabian Weathers Neck MRA 10/22/18 00:09 IMPRESSION: 1. Small acute ischemic infarct in the high posterior left frontal lobe. No hemorrhage or mass effect. 2. Mild chronic white matter microvascular ischemic changes. 3. Normal MRA of the head. 4. Normal MRA of the neck. D/ / Fabian Weathers / Fabian Weathers Interpreting Provider: Fabian Weathers Consult Discharge Plan - Plan Referrals: Yaid Delgadillo, [employer] SOURCE COLLECTION MANAGER [Primary Care Provider] - (Appointment has been requested) (2) CVA (cerebral vascular accident) Qualifiers: CVA mechanism: unspecified Qualified Code(s): I63.9 - Cerebral infarction, unspecified (3) Diabetes Qualifiers: Diabetes mellitus type: type 2 Diabetes mellitus mcc insulin use: without intermediate teacher use Diabetes mellitus complication status: with hyperglycemia Qualified Code(s): E11.65 - Type 2 diabetes mellitus with hyperglycemia (4) Urinary tract infection Qualifiers: Urinary tract infection type: site unspecified Hematuria presence: with hematuria Qualified Code(s): N39.0 - Urinary tract infection, site not specified; R31.9 - Hematuria, unspecified
[2018-10-23] MEDS: Piperacillin/Tazobactam 3.375 GM in 0.9 % Sodium Chloride Mini Bag 100 ML IVPB SCH ×2 (12:08→21:06)
[2018-10-23 12:14] LABS: Basophils % 0.2 %; Eosinophils % 0.1 %; Immature Granulocytes % 0.5 % (0-4); Lymphocytes # 0.8 K/mcL (0.6-4.6); Lymphocytes % 4.5 %; Monocytes # 1.4 K/mcL (0.0-1.3); Monocytes % 8.1 %; Neutrophils # 15.2 K/mcL (1.6-8.9); Segmented Neutrophils % 86.6 %
[2018-10-23] MEDS: 0.9 % Sodium Chloride 1,000 ML IVC SCH ×2 (12:18→20:19)
--- NOTE | 2018-10-23 13:37 | AcuteCare Surgery Consult Note ---
Date of Encounter: 10/23/18 Time of Encounter: 13:15 Assessment and Plan (1) Abscess and cellulitis of gluteal region Current Visit: Yes Status: Acute The abscess is open and draining adequately Wound packed with 1/4 inch plain gauze- will need to continue to pack daily for the next 7-10 days Social service consult to set up home health care- patient does not have family to help Await culture results Continue IV antibiotics- management per hospitalist team (currently on Vancomycin and Zosyn) May transition to PO antibiotics at discharge from a surgical standpoint Will need to follow-up with surgery team in the next 7-10 days Supportive care No further surgical intervention indicated at this time Surgery will sign off. Thank you for allowing us to participate in the care of this patient. Please call with any further questions/concerns. History of Present Illness Consult date: 10/23/18 Reason for consult: other (Right buttock abscess) Requesting physician: Alexandria Canada History of present illness: Ms. Oakes is a pleasant 68 year old female with a past medical history significant for diabetes mellitus, hypertension and hyperlipidemia. She reported to the hospital with complaints of right arm weakness. She has had a work-up for CVA and neurology has seen and given recommendations for treatment of acute CVA. She reports that she also came in with complaints of right buttock discomfort and swelling. She states that the pain continued to progress until an area opened up on her right buttock last evening. She reports that she drained a large amount of purulent, foul smelling draining. She reports continued drainage today. She states that the discomfort does feel a little better after drainage. She denies any fevers or chills. She does report that she has been lethargic and has not felt well for a few days. She has never had an abscess like this in the past. She denies any changes in bowel habits. She does report that she has lost approximately 10 lb. in the recent past. She states that this is how she noticed the bump on her buttock. She reports that it became tender over the past few days. We have been asked to see and evaluate the patient for recommendations. Past Med Surg Social Fam HX - Past Medical History Source: patient, old records reviewed Medical history: diabetes, hyperlipidemia, hypertension - Past Surgical History Surgical History: no surgical history Additional surgical history: Colonoscopy 01/2012 - Social History Smoking Status: Never smoker Smokeless Tobacco Status: No Alcohol use: none Drug use: none Current living situation: Home - Independent Activity Level: Independent ambulation Medications and Allergies Adipex-P 10/21/18 [History] Glimepiride [Amaryl] 2 mg PO QAM 10/21/18 [History] Pravastatin Sodium [Pravachol] 40 mg PO DAILY 10/21/18 [History] Allergy/AdvReac Type Severity Reaction Status Date / Time No Known Allergies Allergy Verified 10/21/18 17:57 Review of Systems All systems PM: reviewed and no additional remarkable complaints except as stated (in the HPI) All systems PM: The remainder of the systems were reviewed and are negative General Surgery Exam Initial Vital Signs Temp Pulse Resp BP Pulse Ox 98.1 F 111 20 103/71 97 10/21/18 16:59 10/21/18 16:59 10/21/18 16:59 10/21/18 16:59 10/21/18 16:59 - General physical appearance well developed, well nourished, no distress - Eyes PERRL, normal ocular movement - ENT normal mucosa, atraumatic, normocephalic - Neck trachea midline - Respiratory normal expansion, normal respiratory effort, clear to auscultation - Cardiovascular Cardiovascular exam: Present: RRR - Abdomen Abdomen general surgery: Present: bowel sounds present, soft, non tender - Integumentary Integumentary general surgery: Present: other (Right buttock abscess with 1 cm opening noted, moderate amount of foul smelling purulent drainage noted, mild surrounding erythema and induration present, tender to examination, no tunnelling or undermining noted) - Neurologic Present: CN 2-12 grossly intact - Musculoskeletal Present: normal gait - Psychiatric Psychiatric general surgery: Present: appropriate, oriented to person, oriented to place, oriented to time, speech is normal, memory intact Exam Initial Vital Signs Temp Pulse Resp BP Pulse Ox 98.1 F 111 20 103/71 97 10/21/18 16:59 10/21/18 16:59 10/21/18 16:59 10/21/18 16:59 10/21/18 16:59 Results - Labs 10/23/18 03:58 10/23/18 03:58 Abnormal lab results WBC 17.4 K/mcL (4.3-11.1) H 10/23/18 03:58 Neutrophils # 15.2 K/mcL (1.6-8.9) H 10/23/18 03:58 Monocytes # 1.4 K/mcL (0.0-1.3) H 10/23/18 03:58 PT 15.0 Seconds (9.4-12.1) H 10/21/18 17:03 Sodium 133 mEq/L (136-145) L 10/21/18 17:03 Carbon Dioxide 22 mEq/L (23-29) L 10/22/18 01:49 BUN/Creatinine Ratio 28 (6-26) H 10/23/18 03:58 Glucose 157 mg/dL (70-105) H 10/23/18 03:58 POC Glucose 159 mg/dL (70-99) H 10/22/18 19:33 Hemoglobin A1c 6.4 % (-5.6) H 10/22/18 01:49 Total Bilirubin 1.1 mg/dL (0.3-1.0) H 10/22/18 01:49 AST 40 Units/L (13-39) H 10/21/18 17:03 Albumin 3.2 g/dL (3.5-5.7) L 10/22/18 01:49 Albumin/Globulin Ratio 0.9 (1.1-2.2) L 10/22/18 01:49 HDL Cholesterol 26 mg/dL (40-59) L 10/23/18 03:58 Urine Clarity Cloudy (Clear) A 10/21/18 20:40 Ur Specific [place] 1.007 (1.010-1.025) L 10/21/18 20:40 Urine Ketones 15 mg/dL (Negative) H 10/21/18 20:40 Urine Blood Moderate (Negative) H 10/21/18 20:40 Urine Nitrite Positive (Negative) A 10/21/18 20:40 Urine Urobilinogen 2.0 mg/dL (Normal) H 10/21/18 20:40 Ur Leukocyte Esterase Large (Negative) H 10/21/18 20:40 Urine Microscopic WBC TNTC per hpf (0-3) H 10/21/18 20:40 Ur Squamous Epith Cells Many per lpf (None-Few) H 10/21/18 20:40 Urine Bacteria Many per hpf (None-Few) H 10/21/18 20:40 Urine Yeast Few per hpf (None Seen) H 10/21/18 20:40 Ur Culture Indicated? YES (NO) A 10/21/18 20:40 Diabetes panel 10/23/18 Range/Units 03:58 Sodium 138 (136-145) mEq/L Potassium 3.8 (3.5-5.1) mEq/L Chloride 105 (98-107) mEq/L Carbon Dioxide 25 (23-29) mEq/L BUN 18 (8-23) mg/dL Creatinine 0.64 (0.60-1.20) mg/dL Glucose 157 H (70-105) mg/dL Calcium 8.6 (8.6-10.3) mg/dL Triglycerides 80 (< 150) mg/dL HDL Cholesterol 26 L (40-59) mg/dL Calcium panel 10/23/18 Range/Units 03:58 Calcium 8.6 (8.6-10.3) mg/dL Pituitary panel 10/23/18 Range/Units 03:58 Sodium 138 (136-145) mEq/L Potassium 3.8 (3.5-5.1) mEq/L Chloride 105 (98-107) mEq/L Carbon Dioxide 25 (23-29) mEq/L BUN 18 (8-23) mg/dL Creatinine 0.64 (0.60-1.20) mg/dL Glucose 157 H (70-105) mg/dL Calcium 8.6 (8.6-10.3) mg/dL Adrenal panel 10/23/18 Range/Units 03:58 Sodium 138 (136-145) mEq/L Potassium 3.8 (3.5-5.1) mEq/L Chloride 105 (98-107) mEq/L Carbon Dioxide 25 (23-29) mEq/L BUN 18 (8-23) mg/dL Creatinine 0.64 (0.60-1.20) mg/dL Glucose 157 H (70-105) mg/dL Calcium 8.6 (8.6-10.3) mg/dL All other labs normal. Consult Discharge Plan - Plan Additional Instructions: Wound care- cleanse area with soap and water in the shower daily, home health to re-pack with 1/4 in plain gauze, cover with dry dressing and tape to secure. Complete daily and prn if soiled. Referrals: Yadi Delgadillo, BRIGITTE [Primary Care Provider] - (Appointment has been requested) Willow Aguilar CNP [Advanced Practice Nurse] - 10/29/18 4:00 pm - Attending Attestation For this encounter, I have reviewed the [employer]ER or PA documentation, treatment plan, and medical decision making; and I have had face to face time with this patient.
[2018-10-23] MEDS: Acetaminophen 325 MG TABLET PO PRN (20:18)
[2018-10-23] MEDS: *HR* OxyCODONE/APAP 5/325 TABLET PO PRN (21:59)
[2018-10-24] MEDS: Nystatin POWDER 30 GM BOTTLE TP SCH ×4 (02:54→20:04)
[2018-10-24 04:51] LABS: Basophils % 0.2 %; Eosinophils # 0.1 K/mcL (0.0-0.6); Eosinophils % 0.6 %; Hematocrit 36.5 % (35.3-44.9); Hemoglobin 11.7 g/dL (11.5-15.4); Lymphocytes # 0.9 K/mcL (0.6-4.6); Lymphocytes % 7.9 %; Mean Corpuscular HGB Conc 32.1 g/dL (31.6-35.5); Mean Corpuscular Hemoglobin 29.8 pg (28.0-33.3); Mean Corpuscular Volume 93.1 fL (83.0-100.0); Mean Platelet Volume 9.4 fL (9.4-12.4); Monocytes % 8.4 %; Neutrophils # 9.4 K/mcL (1.6-8.9); Platelet Count 285 K/mcL (140-400); Red Blood Count 3.92 M/mcL (3.82-4.97); Red Cell Distribution Width 12.5 % (11.5-14.5); Segmented Neutrophils % 81.9 %; White Blood Count 11.5 K/mcL (4.3-11.1)
[2018-10-24] MEDS: Piperacillin/Tazobactam 3.375 GM in 0.9 % Sodium Chloride Mini Bag 100 ML IVPB SCH ×3 (05:09→20:02)
[2018-10-24] MEDS: *HR* Heparin 5,000 UNIT/ML VIAL SQ SCH ×2 (05:10→18:24)
[2018-10-24 05:15] LABS: BUN/Creatinine Ratio 30 (6-26); Blood Urea Nitrogen 20 mg/dL (8-23); Calcium 8.7 mg/dL (8.6-10.3); Carbon Dioxide 26 mEq/L (23-29); Chloride 107 mEq/L (98-107); Glucose 162 mg/dL (70-105); Osmolality,Calculated 302 (280-300); Potassium 3.9 mEq/L (3.5-5.1); Sodium 143 mEq/L (136-145); eGFR For African Americans > 60 (> 60); eGFR For Non-African Americans > 60 (> 60)
[2018-10-24] MEDS: Aspirin 325 MG TABLET PO SCH (08:27)
[2018-10-24] MEDS: 0.9 % Sodium Chloride 1,000 ML IVC SCH (13:11)
[2018-10-24] MEDS: Insulin LISPRO 300 UNITS/3 ML VIAL SQ SCH ×4 (13:13→20:03)
[2018-10-24] MEDS: *HR* OxyCODONE Immed Rel 5 MG TABLET PO PRN (13:14)
--- NOTE | 2018-10-24 13:35 | Internal Med Progress Note ---
Hospitalist Progress Note - Encounter Date of Encounter: 10/25/18 Time of Encounter: 13:14 - Subjective Interval History: Was seen and examined at bedside discussed CT results-also discussed antibiotic coverage as well as evaluation by surgical services and infectious disease which patient verbalizes understanding. - Exam Vitals: Temp Pulse Resp BP Pulse Ox 98.1 F 73 15 147/62 97 10/24/18 11:46 10/24/18 11:46 10/24/18 11:46 10/24/18 11:46 10/24/18 11:46 Exam: Skin: Patient has a red and warm to touch hard fluctuance o right buttocks there is a small opening in the right gluteal fold with no drainage Eyes: Sclera is white. There is no discharge from eyes. ENMT: Oral/pharyngeal mucosa is normal in appearance. There is no discharge from nose or ears. Respiratory: Normal breath sounds with no crackles and wheezes bilaterally. CV: Heart is regular with no gallop or murmur. GI: Abdomen is flat and soft with no palpable mass or visceromegaly. : There is no tenderness in patient's flanks bilaterally. Neuro exam: He has good strength in upper and lower extremities. He has normal eye movements. Psychiatric: He has normal affect. His thought process is appropriate to the situation. - Assessment and Plan (1) Right arm weakness Current Visit: Yes Status: Acute Assessment and Plan: Possibly secondary to CVA. Management as below. 10/23 MRI of head and brain without contrast did reveal a small acute ischemic infarct in the high posterior left frontal lobe no hemorrhage or mass effect This has improved patient has back to baseline- 10/24 This seems to have this resolved patient is back to baseline continue with PT and OT (2) CVA (cerebral vascular accident) Current Visit: Yes Status: Acute Assessment and Plan: Patient was evaluated by neurology [facility]. Recommended patient have echocardiogram, MRI head, MRA head and neck. They also recommended that the profile and A1c. Patient has passed bedside swallow eval. Obtain MRIs as requested follow-up results Lipid panel A1c PT and OT in the morning 10/23 MR/MR head/brain wo con IMPRESSION: 1. Small acute ischemic infarct in the high posterior left frontal lobe. No hemorrhage or mass effect. 2. Mild chronic white matter microvascular ischemic changes. 3. Normal MRA of the head. 4. Normal MRA of the neck. Carotid duplex-preliminary normal carotids Cardiac echo Impressions: LVEF 60%. Mild left ventricular diastolic dysfunction. Normal right ventricular structure and function. Mild aortic regurgitation. Mild mitral regurgitation. Mild to moderate tricuspid regurgitation. No pulmonary hypertension. PFO with moderate right to left shunt on saline contrast study. Cont ASA statin Neurology consulted Will discuss PFO with cardiology - neurology recommends no anticoagulation at this time continue with aspirin because stroke does not appear to be embolic 10/24 Patient does not have any focal weaknesses at this time appears her right side is back to baseline Continue with PT and OT Discuss PFO with cardiology Dr. Crowley recommends continuation of aspirin therapy full dose and follow-up as outpatient (3) Diabetes Current Visit: Yes Status: Acute Assessment and Plan: Patient is not an insulin dependent diabetic Monitor sugars ACHS Diabetic diet Low dose insulin sliding scale as needed Hold home meds. Check A1c in the morning 10/23 Hemoglobin A1c was 6.4 -holding oral medication for now pain continue with Accu- Cheks before meals at bedtime and sliding scale insulin 10/24 Continue with Accu-Cheks before meals at bedtime with sliding scale insulin (4) Urinary tract infection Current Visit: Yes Status: Acute Assessment and Plan: Patient's urinalysis positive for urinary tract infection. Likely related to her elevated white count. Started on ceftriaxone Follow-up urine culture when available Monitor for worsening signs of infection. 10/23 Patient continues to have elevated white count no fever Urine culture growing E coli- placed on zosyn 10/24 Patient is asymptomatic we will continue with Zosyn (5) DVT prophylaxis Current Visit: Yes Status: Acute Assessment and Plan: Subcutaneous heparin (6) Elevated bilirubin Current Visit: Yes Status: Acute Assessment and Plan: Patient has history of mildly elevated bilirubins in the past, she has slightly elevated AST as well. Patient denies history of liver disease. Repeat total bilirubin was decreased at 1.1. Continue to monitor (7) Abscess and cellulitis of gluteal region Current Visit: Yes Status: Acute Assessment and Plan: Patient has redness and warmth with firm skin to right buttocks there is a small lesion and right gluteal fold-large amount of purulent brown foul-smelling drainage-wound culture obtained and sent Patient placed on vancomycin and Zosyn Consult acute surgery for possible I&D 10/24 CT of pelvisrevealed subcutaneous soft tissue swelling within the left gluteal soft tissue with a 2.51.3 cm left perianal fluid collection that is associated with soft tissue gas extending from the perineum superiorly into the left ear region measuring at least 10 cm. The large gas pocket measuring approximately 5.51.9 cm. surgery has been consulted and patient will undergo I&D on 10/25/2018 -Cultures obtained 10/23 pending Gram stain suggesting polymicrobial continue with vancomycin and Zosyn and cefepime Infectious disease has been consulted and appreciate recommendations Surgery has been consulted for I&D 10/25/2018 patient will be nothing by mouth after midnight (8) Patent foramen ovale Current Visit: Yes Status: Acute Assessment and Plan: Echocardiogram does show evidence of PFO with moderate to right to left shunt CVA does not appear to be embolic in nature and neurology recommending continuing aspirin with no anticoagulation We will discuss with cardiology 10/24 I did discuss with Dr. Crowley recommends to continue full dose aspirin and to follow up with cardiology as outpatient (9) Perirectal abscess Current Visit: Yes Status: Acute Assessment and Plan: Patient was evaluated by surgery recommending surgical I&D and planning a rectal exam under anesthesia for possible georgiana of anal fistula Patient will nothing by mouth after midnight (10) Sepsis Current Visit: Yes Status: Acute Assessment and Plan: Secondary to abscess and cellulitis-she has had 3 sirs criteria with elevated temperature tachycardia leukocytosis Wound culture obtained 10/23 pending but Gram stain suggesting polymicrobial Patient initiated on vancomycin and Zosyn and cefepime which we will continue Blood cultures no growth to date Infectious disease has been consulted and appreciate recommendations We will continue with IV fluids monitoring intake output and lab work - Time Spent with Patient Total time spent is greater than 50% in coordination of care (as documented) at patient's floor/unit and/or counseling patient: Internal Medicine: Result - Labs CBC & Chem 7: 10/24/18 04:32 10/24/18 04:32 Labs: Short CBC 10/24/18 Range/Units 04:32 WBC 11.5 H (4.3-11.1) K/mcL Hgb 11.7 (11.5-15.4) g/dL Hct 36.5 (35.3-44.9) % Plt Count 285 (140-400) K/mcL Neutrophils # 9.4 H (1.6-8.9) K/mcL BMP 10/24/18 04:32 Sodium 143 Potassium 3.9 Chloride 107 Carbon Dioxide 26 BUN 20 Creatinine 0.66 Glucose 162 H Calcium 8.7 - ABG Interpretation ABG results: PT/INR, D-dimer PT 15.0 Seconds (9.4-12.1) H 10/21/18 17:03 - Impressions Impressions Pelvis CT 10/24/18 08:59 IMPRESSION: Subcutaneous soft tissue swelling within the left gluteal soft tissues with a 2.5 x 1.3 cm left perianal fluid collection. There is associated soft tissue gas extending from the perineum superiorly into the left gluteal region measuring at least 10 cm in the craniocaudal dimension. The largest gas pocket measures approximately 5.5 x 1.9 cm. Recommend correlation with any clinical signs of necrotizing fasciitis. Critical results were called by Dr. Xuan Pierce MD to Alexandria Canada CNP on 10/24/2018 at 11:11. D/ / 10/24/2018 11:15:28 Xuan Pierce MD / [facility] Interpreting Provider: Xuan Pierce MD Consult Discharge Plan - Plan Additional Instructions: Wound care- cleanse area with soap and water in the shower daily, home health to re-pack with 1/4 in plain gauze, cover with dry dressing and tape to secure. Complete daily and prn if soiled. Home health has been set up through [facility]. They will contact you with a date and time to complete admission. If you need to contact them please call #[phone] or #[phone]. Referrals: Willow Aguilar CNP [Advanced Practice Nurse] - 10/29/18 4:00 pm Yadi Delgadillo CNP [Primary Care Provider] - (Appointment has been requested) (2) CVA (cerebral vascular accident) Qualifiers: CVA mechanism: unspecified Qualified Code(s): I63.9 - Cerebral infarction, unspecified (3) Diabetes Qualifiers: Diabetes mellitus type: type 2 Diabetes mellitus correction insulin use: without correction use Diabetes mellitus complication status: with hyperglycemia Qualified Code(s): E11.65 - Type 2 diabetes mellitus with hyperglycemia (4) Urinary tract infection Qualifiers: Urinary tract infection type: site unspecified Hematuria presence: with h ematuria Qualified Code(s): N39.0 - Urinary tract infection, site not spec ified; R31.9 - Hematuria, unspecified (10) Sepsis Qualifiers: Sepsis type: sepsis due to unspecified organism Sepsis acute organ dysfunction status: unspecified Qualified Code(s): A41.9 - Sepsis, unspecified organism
--- NOTE | 2018-10-24 14:09 | AcuteCareSurgery Progress Note ---
<Willow Aguilar - Last Filed: 10/24/18 14:15> Date of Encounter: 10/24/18 Time of Encounter: 13:15 - Assessment and Plan (1) Perirectal abscess Current Visit: Yes Status: Acute Left gluteal I&D site is with continued drainage of purulent material, cellulitis, and induration. Pt reports hsitorically she had chronic abscess in this area that worsened after losing [address] of pelvis images reviewed and notable gas and fluid collections remain. Unfortunately the patient had eaten part of her lunch and will be unable to take her to the operating room today. We will plan for rectal exam under anesthesia, possible on georgiana of anal fis jh, possible I&D in the next 24 hours. Continue packing as per previous orders Continue IV ATBX Cares per primary team NPO at midnight Subjective Patient reports: still having pain (and drainage from site) Objective Vital Signs - Last 8 Hours Temp Pulse Resp BP Pulse Ox 10/24/18 11:46 98.1 F 73 15 147/62 97 10/24/18 08:15 97.7 F 74 17 124/70 97 Intake and Output 10/23/18 10/24/18 10/24/18 23:59 07:59 15:59 Intake Total 1590 / 1850 100 / 1200 1100 / 1200 Output Total 200 / 300 Balance 1390 / 1550 100 / 1200 1100 / 1200 Intake: IV Fluids 1350 / 1610 100 / 1200 1100 / 1200 0.9 % Sodium Chloride 1,000 ML 1000 / 1000 1000 / 1000 @ 100 mls/hr IVC .Q10H JENNIFER Rx#: [id number] Zosyn 3.375 GM In 0.9 % Sodium 100 / 100 100 / 200 100 / 200 Chloride (Mini-Bag +) 100 ML @ 25 mls/hr IVPB Q8H JENNIFER Rx#: [id number] Vancocin 1,250 MG In 0.9 % 250 / 500 Sodium Chloride 250 ML @ 166.67 mls/hr IVPB Q12H JENNIFER Rx#: [id number] Oral 240 / 240 Output: Urine 200 / 300 Other: Meal Dinner Weight 92.4 kg Blood Glucose* 151 113 Patient Weight 10/24/18 23:59 Weight 92.4 kg - General physical appearance well nourished, no distress, obese - ENT atraumatic, normocephalic - Integumentary other (Left gluteal I&D site (see a/p)) - Musculoskeletal normal posture - Psychiatric oriented to time, oriented to person, oriented to place - Labs 10/24/18 04:32 10/24/18 04:32 Diabetes panel 10/24/18 Range/Units 04:32 Sodium 143 (136-145) mEq/L Potassium 3.9 (3.5-5.1) mEq/L Chloride 107 (98-107) mEq/L Carbon Dioxide 26 (23-29) mEq/L BUN 20 (8-23) mg/dL Creatinine 0.66 (0.60-1.20) mg/dL Glucose 162 H (70-105) mg/dL Calcium 8.7 (8.6-10.3) mg/dL Calcium panel 10/24/18 Range/Units 04:32 Calcium 8.7 (8.6-10.3) mg/dL Pituitary panel 10/24/18 Range/Units 04:32 Sodium 143 (136-145) mEq/L Potassium 3.9 (3.5-5.1) mEq/L Chloride 107 (98-107) mEq/L Carbon Dioxide 26 (23-29) mEq/L BUN 20 (8-23) mg/dL Creatinine 0.66 (0.60-1.20) mg/dL Glucose 162 H (70-105) mg/dL Calcium 8.7 (8.6-10.3) mg/dL Adrenal panel 10/24/18 Range/Units 04:32 Sodium 143 (136-145) mEq/L Potassium 3.9 (3.5-5.1) mEq/L Chloride 107 (98-107) mEq/L Carbon Dioxide 26 (23-29) mEq/L BUN 20 (8-23) mg/dL Creatinine 0.66 (0.60-1.20) mg/dL Glucose 162 H (70-105) mg/dL Calcium 8.7 (8.6-10.3) mg/dL Consult Discharge Plan - Plan Additional Instructions: Wound care- cleanse area with soap and water in the shower daily, home health to re-pack with 1/4 in plain gauze, cover with dry dressing and tape to secure. Complete daily and prn if soiled. Home health has been set up through [facility]. They will contact you with a date and time to complete admission. If you need to contact them please call #[phone] or #[phone]. Referrals: Willow Aguilar CNP [Advanced Practice Nurse] - 10/29/18 4:00 pm Yadi Delgadillo CNP [Primary Care Provider] - (Appointment has been requested) <Reginaldo Ruiz - Last Filed: 10/25/18 02:16> Date of Encounter: 10/24/18 Objective Vital Signs - Last 8 Hours Temp Pulse Resp BP Pulse Ox 10/24/18 23:11 98.6 F 85 16 104/63 93 10/24/18 19:41 98.7 F 85 16 117/69 95 Intake and Output 10/24/18 10/24/18 10/25/18 15:59 23:59 07:59 Intake Total 1350 / 1720 270 / 1720 Output Total 400 / 400 Balance 1350 / 1320 -130 / 1320 Intake: IV Fluids 1350 / 1600 150 / 1600 0.9 % Sodium Chloride 1,000 ML 1000 / 1000 @ 100 mls/hr IVC .Q10H JENNIFER Rx#: [id number] Cleocin Premix 600 MG/50 ML 600 50 / 50 mg In 50 ml @ 50 mls/hr IVPB Q6HR JENNIFER Rx#:[id number] Zosyn 3.375 GM In 0.9 % Sodium 100 / 300 100 / 300 Chloride (Mini-Bag +) 100 ML @ 25 mls/hr IVPB Q8H JENNIFER Rx#: [id number] Vancocin 1,250 MG In 0.9 % 250 / 250 Sodium Chloride 250 ML @ 166.67 mls/hr IVPB Q12H JENNIFER Rx#: [id number] Oral 120 / 120 Output: Urine 400 / 400 Other: Meal Dinner Percent of Meal Consumed 10% # Voids 1 Blood Glucose* 101 125 - Labs 10/24/18 04:32 10/24/18 04:32 Diabetes panel 10/24/18 Range/Units 04:32 Sodium 143 (136-145) mEq/L Potassium 3.9 (3.5-5.1) mEq/L Chloride 107 (98-107) mEq/L Carbon Dioxide 26 (23-29) mEq/L BUN 20 (8-23) mg/dL Creatinine 0.66 (0.60-1.20) mg/dL Glucose 162 H (70-105) mg/dL Calcium 8.7 (8.6-10.3) mg/dL Calcium panel 10/24/18 Range/Units 04:32 Calcium 8.7 (8.6-10.3) mg/dL Pituitary panel 10/24/18 Range/Units 04:32 Sodium 143 (136-145) mEq/L Potassium 3.9 (3.5-5.1) mEq/L Chloride 107 (98-107) mEq/L Carbon Dioxide 26 (23-29) mEq/L BUN 20 (8-23) mg/dL Creatinine 0.66 (0.60-1.20) mg/dL Glucose 162 H (70-105) mg/dL Calcium 8.7 (8.6-10.3) mg/dL Adrenal panel 10/24/18 Range/Units 04:32 Sodium 143 (136-145) mEq/L Potassium 3.9 (3.5-5.1) mEq/L Chloride 107 (98-107) mEq/L Carbon Dioxide 26 (23-29) mEq/L BUN 20 (8-23) mg/dL Creatinine 0.66 (0.60-1.20) mg/dL Glucose 162 H (70-105) mg/dL Calcium 8.7 (8.6-10.3) mg/dL - Attending Attestation I have personally performed a face to face evaluation on this patient. I have reviewed and agree with the care plan. History and Exam by me shows: The patient is seen and evaluated on morning rounds with the acute care surgery team. She is already eaten. 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 I recommended exam under anesthesia and incision and drainage of perirectal abscess with possible unroofing of anal fistula. We will continue IV antibiotics today and proceed tomorrow
--- NOTE | 2018-10-24 15:50 | Neurology Progress Note ---
<Russell Acuna J - Last Filed: 10/24/18 15:45> Date of Encounter: 10/24/18 Time of Encounter: 15:45 Assessment and Plan (1) CVA (cerebral vascular accident) Current Visit: Yes Status: Acute Clinically, patient continues to improve. Neurological exam reveals no new deficits. I did again discuss the findings of the MRI brain, MRA head and neck as well as lifestyle modifications. At this juncture we are simply recommending continuing PT and OT, continue full-strength aspirin and high intensity statin. Neurology will sign off at this time. Please call should any new urgent needs arise. Thank you for consulting [facility]. Qualifiers: CVA mechanism: unspecified Qualified Code(s): I63.9 - Cerebral infarction, unspecified Subjective Principal diagnosis: Acute CVA Interval history: Chart reviewed, the patient was seen at bedside today. No acute change in condition overnight. Again reviewed MRI brain, MRA head and neck findings. Discussed changing medication to history of aspirin and continue Lipitor therapy as well as aggressive lifestyle and risk factor modifications. Currently, patient remained stable without any development of further neurologic deficit. She notes that the strength has returned to her right arm is almost back to patient normal. Currently completes this time that her heart feels somewhat heavy with prolonged use. Objective - Constitutional Vitals: Temp Pulse Resp BP Pulse Ox 98.4 F 81 17 118/67 95 10/24/18 15:07 10/24/18 15:07 10/24/18 15:07 10/24/18 15:07 10/24/18 15:07 Exam: Examination: General Examination: *CONSTITUTIONAL: Alert and oriented x3, no acute distress *GENERAL APPEARANCE OF PATIENT appears healthy and well groomed *EYES: pupils equal, round, reactive to light and accommodation, conjunctiva clear without masses or ulcerations, fundi normal. *CARDIOVASCULAR: no peripheral edema, distal temperature normal, dorsalis pedis pulses normal. Refer to vital signs * MUSCULOSKELETAL: *GAIT AND STATION: normal, with normal Romberg testing, no abnormalities such as broad base gait or spasticity *ASSESSMENT OF MUSCLE STRENGTH IN THE UPPER AND LOWER EXTREMITIES bilateral deltoid, bicep, tricep, senior software manager strength, hip flexors ,anterior tibialis, dorsoflexion of the foot 5/5 *MUSCLE TONE IN THE UPPER AND LOWER EXTREMITIES normal. No abnormal movements, fasciculations or atrophy identified. Neurological: *ORIENTATION to person, situation, time and place *LANGUAGE AND FUNCTION no significant aphasia or dysarthia was noted. *ATTENTION AND CONCENTRATION are normal *LANGUAGE FUNCTION no significant aphasia or dysarthia was noted. *FUND OF KNOWLEDGE aware of current events, past history, vocabulary *MENTAL attention span and concentration normal. *CN II optic fundi were normal, no papilledema noted. *CN III,IV, PERRLA extraocular eye movements were full, no nystagmus and no ptosis noted. *CN V shows normal sensation and jaw opens symmetrically. *CN VII shows normal facial movement symmetrically, upper and lower bilaterally. *CN VIII shows no significant hearing loss on exam *CN IX-X palate elevated symmetrically *CN XI normal strength in the sternocleidomastoid muscles, symmetrical shoulder shrugging. *CN XII tongue protruded in the midline, with normal strength and movement. *SENSORY EXAMINATION light touch intact *REFLEXES: deep tendon reflexes were normal and symmetrical , grade 2/4 diffusely, no pathological reflexes were noted. *CEREBELLAR TESTING normal finger to nose, heel/knee/maloney *PAIN LEVEL 0/10 - Neurological Exam Sensorimotor examination: Present: intact Motor Examination: Present: grossly full strength in all extremities Motor examination - left side: 4/5: hip flexors, tibialis Anterior, 5/5: deltoids, biceps, triceps, senior software manager, toe extension (EHL), plantarflexion Sensation intact: Present: intact Posture: Present: other (none) Reflex and gait examination: intact Mental Status Examination: Present: awake, alert, oriented to person, oriented to place, oriented to time, follows commands appropriately, answers questions a ppropriately, no agnosia, no aphasia, no aproxia Cranial nerve examination: Present: PERRL, EOMI, sensory to face intact, mastication intact, no facial asymmetry is present, no dysarthria, hearing is intact symmetrically, soft palate elevates bilaterally upon phonation, flexes SCM and trapezius muscles symmetrically with full power, tongue protrudes midline, no atrophy or facial fasiculations present Cerebellar examination: Present: no dysmetria, performs finger to nose and heel to maloney symmetrically without ataxia Results - Laboratory Findings CBC and BMP: 10/24/18 04:32 10/24/18 04:32 Abnormal lab findings: Abnormal lab results WBC 11.5 K/mcL (4.3-11.1) H 10/24/18 04:32 Neutrophils # 9.4 K/mcL (1.6-8.9) H 10/24/18 04:32 Monocytes # 1.4 K/mcL (0.0-1.3) H 10/23/18 03:58 PT 15.0 Seconds (9.4-12.1) H 10/21/18 17:03 Sodium 133 mEq/L (136-145) L 10/21/18 17:03 Carbon Dioxide 22 mEq/L (23-29) L 10/22/18 01:49 BUN/Creatinine Ratio 30 (6-26) H 10/24/18 04:32 Glucose 162 mg/dL (70-105) H 10/24/18 04:32 POC Glucose 151 mg/dL (70-99) H 10/23/18 20:47 Hemoglobin A1c 6.4 % (-5.6) H 10/22/18 01:49 Calculated Osmolality 302 (280-300) H 10/24/18 04:32 Total Bilirubin 1.1 mg/dL (0.3-1.0) H 10/22/18 01:49 AST 40 Units/L (13-39) H 10/21/18 17:03 Albumin 3.2 g/dL (3.5-5.7) L 10/22/18 01:49 Albumin/Globulin Ratio 0.9 (1.1-2.2) L 10/22/18 01:49 HDL Cholesterol 26 mg/dL (40-59) L 10/23/18 03:58 Urine Clarity Cloudy (Clear) A 10/21/18 20:40 Ur Specific Jeff 1.007 (1.010-1.025) L 10/21/18 20:40 Urine Ketones 15 mg/dL (Negative) H 10/21/18 20:40 Urine Blood Moderate (Negative) H 10/21/18 20:40 Urine Nitrite Positive (Negative) A 10/21/18 20:40 Urine Urobilinogen 2.0 mg/dL (Normal) H 10/21/18 20:40 Ur Leukocyte Esterase Large (Negative) H 10/21/18 20:40 Urine Microscopic WBC TNTC per hpf (0-3) H 10/21/18 20:40 Ur Squamous Epith Cells Many per lpf (None-Few) H 10/21/18 20:40 Urine Bacteria Many per hpf (None-Few) H 10/21/18 20:40 Urine Yeast Few per hpf (None Seen) H 10/21/18 20:40 Ur Culture Indicated? YES (NO) A 10/21/18 20:40 Vancomycin Trough 11 mcg/mL (5-10) H 10/24/18 04:32 Consult Discharge Plan - Plan Additional Instructions: Wound care- cleanse area with soap and water in the shower daily, home health to re-pack with 1/4 in plain gauze, cover with dry dressing and tape to secure. Complete daily and prn if soiled. Home health has been set up through [facility]. They will contact you with a date and time to complete admission. If you need to contact them please call #[phone] or #[phone]. Referrals: Willow Aguilar CNP [Advanced Practice Nurse] - 10/29/18 4:00 pm Yadi Delgadillo CNP [Primary Care Provider] - (Appointment has been requested) <Darnell Miller - Last Filed: 10/24/18 17:19> Date of Encounter: 10/24/18 Assessment and Plan (1) CVA (cerebral vascular accident) Current Visit: Yes Status: Acute I have personally performed a knmj-[id number]-debi assessment of the patient and have re viewed the PA/SUGAR BOILER note. My impressions are as follows: I agree with the assessment and plan as documented above. We will reevaluate your request. Qualifiers: CVA mechanism: unspecified Qualified Code(s): I63.9 - Cerebral infarction, unspecified Subjective Interval history: Chart was reviewed, patient was seen and examined independently. Case was discussed with the WEB APPLICATION DEVELOPER. I agree with his documentation of the subjective history as stated above. Objective - Constitutional Vitals: Temp Pulse Resp BP Pulse Ox 98.4 F 81 17 118/67 95 10/24/18 15:07 10/24/18 15:07 10/24/18 15:07 10/24/18 15:07 10/24/18 15:07 Exam: I have personally performed a [id number] assessment of the patient and have reviewed the PA/SUGAR BOILER note. My impressions are as follows: I agree with the neurologic examination is documented above by the WEB APPLICATION DEVELOPER. Results - Laboratory Findings CBC and BMP: 10/24/18 04:32 10/24/18 04:32 Abnormal lab findings: Abnormal lab results WBC 11.5 K/mcL (4.3-11.1) H 10/24/18 04:32 Neutrophils # 9.4 K/mcL (1.6-8.9) H 10/24/18 04:32 Monocytes # 1.4 K/mcL (0.0-1.3) H 10/23/18 03:58 PT 15.0 Seconds (9.4-12.1) H 10/21/18 17:03 Sodium 133 mEq/L (136-145) L 10/21/18 17:03 Carbon Dioxide 22 mEq/L (23-29) L 10/22/18 01:49 BUN/Creatinine Ratio 30 (6-26) H 10/24/18 04:32 Glucose 162 mg/dL (70-105) H 10/24/18 04:32 POC Glucose 151 mg/dL (70-99) H 10/23/18 20:47 Hemoglobin A1c 6.4 % (-5.6) H 10/22/18 01:49 Calculated Osmolality 302 (280-300) H 10/24/18 04:32 Total Bilirubin 1.1 mg/dL (0.3-1.0) H 10/22/18 01:49 AST 40 Units/L (13-39) H 10/21/18 17:03 Albumin 3.2 g/dL (3.5-5.7) L 10/22/18 01:49 Albumin/Globulin Ratio 0.9 (1.1-2.2) L 10/22/18 01:49 HDL Cholesterol 26 mg/dL (40-59) L 10/23/18 03:58 Urine Clarity Cloudy (Clear) A 10/21/18 20:40 Ur Specific Jeff 1.007 (1.010-1.025) L 10/21/18 20:40 Urine Ketones 15 mg/dL (Negative) H 10/21/18 20:40 Urine Blood Moderate (Negative) H 10/21/18 20:40 Urine Nitrite Positive (Negative) A 10/21/18 20:40 Urine Urobilinogen 2.0 mg/dL (Normal) H 10/21/18 20:40 Ur Leukocyte Esterase Large (Negative) H 10/21/18 20:40 Urine Microscopic WBC TNTC per hpf (0-3) H 10/21/18 20:40 Ur Squamous Epith Cells Many per lpf (None-Few) H 10/21/18 20:40 Urine Bacteria Many per hpf (None-Few) H 10/21/18 20:40 Urine Yeast Few per hpf (None Seen) H 10/21/18 20:40 Ur Culture Indicated? YES (NO) A 10/21/18 20:40 Vancomycin Trough 11 mcg/mL (5-10) H 10/24/18 04:32
[2018-10-24] MEDS: Clindamycin 600 MG/50 ML 600 MG/50 ML IV.SOLN IVPB SCH (17:51)
--- NOTE | 2018-10-24 17:58 | Infectious Disease Consult ---
Infectious Disease-Consult - Encounter Date/Time Date of Encounter: 10/24/18 Time of Encounter: 17:49 - Data of Consult Patient: new to practice Reason for consult: Perianal abscess Consult date: 10/24/18 Requesting Physician: Nancy Hendricks MD Primary Care Provider: Yadi Delgadillo CNP - HPI HPI: Patient is a 68-year-old woman who presented to [facility] emergency department on 10/21/2018 with dizziness and lightheadedness and altered mental status and was admitted and stroke alert was activated. We are consult at on 10/24/2018 for perianal abscess with multi bacteria Gram stain. Patient is a 68-year-old woman with past medical history mentioned below including diabetes mellitus type 2 and hypertension who was also obese and tells me she has lost 50 pounds in the last few months came in with lightheadedness dizziness and possible TIA. Patient apparently has had a abscess or lesion on the left buttock that has been going on for quite some time and is getting progressively worse. Patient actually was not complaining of it and she only came here for the dizziness and that was found incidentally. Patient denied any fevers or chills or rigors at home. Since admission patient has been febrile with a MAXIMUM TEMPERATURE of 101.0 Fahrenheit, tachycardic without tachypnea. Labs revealed leukocytosis with a WBC on admission was 19.1 with a neutrophil predominance. No differential was obtained. Chemistry revealed normal BUN and creatinine. A urinalysis was obtained which was positive but also was contaminated. A urine culture was positive for Escherichia coli pansensitive. On 10/23/2018 records mention that the patient had cellulitis of the buttock with large amount of foul-smelling purulent drainage that had titrated her bed and clothes. At that time blood cultures and wound cultures were obtained and surgery was consulted. Surgery recommended continuing IV antibiotics while here and probably transitioning to by mouth antibiotics on discharge. On the [address] pelvis which revealed subcutaneous soft tissue swelling within the left gluteal soft tissue with a 2.51.3 cm left perianal fluid collection that is associated with soft tissue gas extending from the perineum superiorly into the left ear region measuring at least 10 cm. The large gas pocket measuring approximately 5.51.9 cm Currently patient laying in bed. Wound was being changed by nursing staff. Patient denies any URI symptoms. No chest pain, NO shortness of breath, no diarrhea, no abdominal pain. no Urinary symptoms. - ROS Review of Systems: 10 point review of systems done, negative other for what is mentioned in history of present illness - Results CBC & Chem 7: 10/24/18 04:32 10/24/18 04:32 - Exam Vitals: Temp Pulse Resp BP Pulse Ox 98.4 F 81 17 118/67 95 10/24/18 15:07 10/24/18 15:07 10/24/18 15:07 10/24/18 15:07 10/24/18 15:07 Exam: GENERAL: Laying in bed, appears comfortable. HEAD: Normocephalic atraumatic EYES: PERRLA, EOMI, no conjunctival hemorrhage, sclera anicteric ENT: Mucous membranes moist, no oral thrush NECK: Supple. No meningeal signs. No masses LUNGS: Chest expanding symmetrically. Lungs sounds audible both lung reeves. No wheezing, no rhonchi CV: RRR, S1S2, ABDOMEN: Soft, nontender, nondistended. Bowel sounds audible BACK: cellulitis Left buttock with hard fluctuance. warm to touch. has a small orfice with no active drainage. EXTREMITY: Adequate perfusion. No joint effusion. SKIN: Normal color. No rash. NEURO: Awake alert oriented 3. No obvious focal deficit PSYCH: Calm and appropriate. No agitation. Adipex-P 10/21/18 [History] Glimepiride [Amaryl] 2 mg PO QAM 10/21/18 [History] Pravastatin Sodium [Pravachol] 40 mg PO DAILY 10/21/18 [History] Allergy/AdvReac Type Severity Reaction Status Date / Time No Known Allergies Allergy Verified 10/21/18 17:57 - Assessment and Plan (1) Sepsis Current Visit: Yes Status: Acute Had 3 SIRS criteria on admission secondary to gluteal abscess SNOMED Code(s): 10168366 (2) Abscess and cellulitis of gluteal region Current Visit: Yes Status: Acute concern for necrotizing fascitis CT 10/24/18: Subcutaneous soft tissue swelling L gluteal soft tissues with a 2.5 x 1.3 cm left perianal fluid collections. There is soft tissue gas extending from the perineum superiorly into the left gluteal region measuring at least 10 cm. Cultures buttock 10/23: pending but gram stain suggesting polymicrobial blood cultures no growth to date SNOMED Code(s): 603937774 (3) Urinary tract infection Current Visit: Yes Status: Acute True UTI vs asymptomatic Bacterurira patient asymptomatci Qualifiers: Urinary tract infection type: site unspecified Hematuria presence: with hematuria Qualified Code(s): N39.0 - Urinary tract infection, site not specified; R31.9 - Hematuria, unspecified SNOMED Code(s): 57869180 (4) Perirectal abscess Current Visit: Yes Status: Acute SNOMED Code(s): 79941733 (5) Diabetes Current Visit: Yes Status: Acute Qualifiers: Diabetes mellitus type: type 2 Diabetes mellitus senior living insulin use: without senior living use Diabetes mellitus complication status: with hyperglycemia Qualified Code(s): E11.65 - Type 2 diabetes mellitus with hyperglycemia SNOMED Code(s): 51885564 - Recommendations Recommendations: await cultures to finalize appreciate surgery input I&D tomorrow? Check CK level Continue vancomycin, Zosyn and clindamycin Goal vancomycin trough around 10 Will tailor antibiotics based on the culture results Monitor labs and for drug toxicity Past Med Surg Social Fam HX - Past Medical History Medical history: diabetes, hyperlipidemia, hypertension - Past Surgical History Surgical History: no surgical history Additional surgical history: Colonoscopy 01/2012 - Social History Smoking Status: Never smoker Smokeless Tobacco Status: No Alcohol use: none Drug use: none Consult Discharge Plan - Plan Additional Instructions: Wound care- cleanse area with soap and water in the shower daily, home health to re-pack with 1/4 in plain gauze, cover with dry dressing and tape to secure. Complete daily and prn if soiled. Home health has been set up through [facility]. They will contact you with a date and time to complete admission. If you need to contact them please call #[phone] or #[phone]. Referrals: Willow Aguilar CNP [Advanced Practice Nurse] - 10/29/18 4:00 pm Yadi Delgadillo CNP [Primary Care Provider] - (Appointment has been requested)
[2018-10-24] MEDS: Lactobacillus 1 EACH CAP.SPRINK PO SCH (20:03)
[2018-10-25] MEDS: Clindamycin 600 MG/50 ML 600 MG/50 ML IV.SOLN IVPB SCH ×3 (00:03→12:47)
[2018-10-25] MEDS: 0.9 % Sodium Chloride 1,000 ML IVC SCH ×5 (00:04→12:21)
[2018-10-25] MEDS: Piperacillin/Tazobactam 3.375 GM in 0.9 % Sodium Chloride Mini Bag 100 ML IVPB SCH ×3 (04:08→21:21)
[2018-10-25] MEDS: *HR* Heparin 5,000 UNIT/ML VIAL SQ SCH ×2 (05:35→17:20)
--- NOTE | 2018-10-25 08:12 | Internal Med Progress Note ---
Hospitalist Progress Note - Encounter Date of Encounter: 10/25/18 Time of Encounter: 08:12 - Subjective Interval History: Patient seen and examined at bedside currently Leiding surgical debridement this morning denies any pain or discomfort - Exam Vitals: Temp Pulse Resp BP Pulse Ox 97.7 F 78 16 121/64 94 10/25/18 07:33 10/25/18 07:33 10/25/18 07:33 10/25/18 07:33 10/25/18 07:33 Exam: Skin: Patient has a red and warm to touch hard fluctuance o right buttocks there is a small opening in the right gluteal fold with no drainage Eyes: Sclera is white. There is no discharge from eyes. ENMT: Oral/pharyngeal mucosa is normal in appearance. There is no discharge from nose or ears. Respiratory: Normal breath sounds with no crackles and wheezes bilaterally. CV: Heart is regular with no gallop or murmur. GI: Abdomen is flat and soft with no palpable mass or visceromegaly. : There is no tenderness in patient's flanks bilaterally. Neuro exam: He has good strength in upper and lower extremities. He has normal eye movements. Psychiatric: He has normal affect. His thought process is appropriate to the situation. - Assessment and Plan (1) Right arm weakness Current Visit: Yes Status: Acute Assessment and Plan: Possibly secondary to CVA. Management as below. 10/23 MRI of head and brain without contrast did reveal a small acute ischemic infarct in the high posterior left frontal lobe no hemorrhage or mass effect This has improved patient has back to baseline- 10/24 This seems to have this resolved patient is back to baseline continue with PT and OT 10/25 As above (2) CVA (cerebral vascular accident) Current Visit: Yes Status: Acute Assessment and Plan: Patient was evaluated by neurology [facility]. Recommended patient have echocardiogram, MRI head, MRA head and neck. They also recommended that the profile and A1c. Patient has passed bedside swallow eval. Obtain MRIs as requested follow-up results Lipid panel A1c PT and OT in the morning 10/23 MR/MR head/brain wo con IMPRESSION: 1. Small acute ischemic infarct in the high posterior left frontal lobe. No hemorrhage or mass effect. 2. Mild chronic white matter microvascular ischemic changes. 3. Normal MRA of the head. 4. Normal MRA of the neck. Carotid duplex-preliminary normal carotids Cardiac echo Impressions: LVEF 60%. Mild left ventricular diastolic dysfunction. Normal right ventricular structure and function. Mild aortic regurgitation. Mild mitral regurgitation. Mild to moderate tricuspid regurgitation. No pulmonary hypertension. PFO with moderate right to left shunt on saline contrast study. Cont ASA statin Neurology consulted Will discuss PFO with cardiology - neurology recommends no anticoagulation at this time continue with aspirin because stroke does not appear to be embolic 10/24 Patient does not have any focal weaknesses at this time appears her right side is back to baseline Continue with PT and OT Discuss PFO with cardiology Dr. Crowley recommends continuation of aspirin therapy full dose and follow-up as outpatient 10/25 Continued aspirin and statin PTOT Follow-up with cardiology and neurology as outpatient (3) Diabetes Current Visit: Yes Status: Acute Assessment and Plan: Patient is not an insulin dependent diabetic Monitor sugars ACHS Diabetic diet Low dose insulin sliding scale as needed Hold home meds. Check A1c in the morning 10/23 Hemoglobin A1c was 6.4 -holding oral medication for now pain continue with Accu- Cheks before meals at bedtime and sliding scale insulin 10/24 Continue with Accu-Cheks before meals at bedtime with sliding scale insulin 10/25 Continued Accu-Cheks before meals at bedtime with sliding scale insulin (4) Urinary tract infection Current Visit: Yes Status: Acute Assessment and Plan: Patient's urinalysis positive for urinary tract infection. Likely related to her elevated white count. Started on ceftriaxone Follow-up urine culture when available Monitor for worsening signs of infection. 10/23 Patient continues to have elevated white count no fever Urine culture growing E coli- placed on zosyn 10/24 Patient is asymptomatic we will continue with Zosyn 10/25 Asymptomatic currently on Zosyn (5) DVT prophylaxis Current Visit: Yes Status: Acute Assessment and Plan: Subcutaneous heparin (6) Elevated bilirubin Current Visit: Yes Status: Acute Assessment and Plan: Patient has history of mildly elevated bilirubins in the past, she has slightly elevated AST as well. Patient denies history of liver disease. Repeat total bilirubin was decreased at 1.1. Continue to monitor (7) Abscess and cellulitis of gluteal region Current Visit: Yes Status: Acute Assessment and Plan: Patient has redness and warmth with firm skin to right buttocks there is a small lesion and right gluteal fold-large amount of purulent brown foul-smelling drainage-wound culture obtained and sent Patient placed on vancomycin and Zosyn Consult acute surgery for possible I&D 10/24 CT of pelvisrevealed subcutaneous soft tissue swelling within the left gluteal soft tissue with a 2.51.3 cm left perianal fluid collection that is associated with soft tissue gas extending from the perineum superiorly into the left ear region measuring at least 10 cm. The large gas pocket measuring approximately 5.51.9 cm. surgery has been consulted and patient will undergo I&D on 10/25/2018 -Cultures obtained 10/23 pending Gram stain suggesting polymicrobial continue with vancomycin and Zosyn and cefepime Infectious disease has been consulted and appreciate recommendations Surgery has been consulted for I&D 10/25/2018 patient will be nothing by mouth after midnight 10/25 Infectious disease and surgery has been consulted and appreciate recommendations Nothing by mouth at this time for pending surgical I&D today Continue with vancomycin and Zosyn and cefepime (8) Patent foramen ovale Current Visit: Yes Status: Acute Assessment and Plan: Echocardiogram does show evidence of PFO with moderate to right to left shunt CVA does not appear to be embolic in nature and neurology recommending continuing aspirin with no anticoagulation We will discuss with cardiology 10/24 I did discuss with Dr. Crowley recommends to continue full dose aspirin and to follow up with cardiology as outpatient 10/25 Continue with for aspirin follow up with cardiology (9) Perirectal abscess Current Visit: Yes Status: Acute Assessment and Plan: Patient was evaluated by surgery recommending surgical I&D and planning a rectal exam under anesthesia for possible georgiana of anal fistula Patient will nothing by mouth after midnight (10) Sepsis Current Visit: Yes Status: Acute Assessment and Plan: Secondary to abscess and cellulitis-she has had 3 sirs criteria with elevated temperature tachycardia leukocytosis Wound culture obtained 10/23 pending but Gram stain suggesting polymicrobial Patient initiated on vancomycin and Zosyn and cefepime which we will continue Blood cultures no growth to date Infectious disease has been consulted and appreciate recommendations We will continue with IV fluids monitoring intake output and lab work - Time Spent with Patient Total time spent is greater than 50% in coordination of care (as documented) at patient's floor/unit and/or counseling patient: Internal Medicine: Result - Labs CBC & Chem 7: 10/24/18 04:32 10/24/18 04:32 - ABG Interpretation ABG results: PT/INR, D-dimer PT 15.0 Seconds (9.4-12.1) H 10/21/18 17:03 - Impressions Impressions Pelvis CT 10/24/18 08:59 IMPRESSION: Subcutaneous soft tissue swelling within the left gluteal soft tissues with a 2.5 x 1.3 cm left perianal fluid collection. There is associated soft tissue gas extending from the perineum superiorly into the left gluteal region measuring at least 10 cm in the craniocaudal dimension. The largest gas pocket measures approximately 5.5 x 1.9 cm. Recommend correlation with any clinical signs of necrotizing fasciitis. Critical results were called by Dr. Xuan Pierce MD to Alexandria Canada CNP on 10/24/2018 at 11:11. D/ / 10/24/2018 11:15:28 Xuan Pierce MD / [email or web address] Interpreting Provider: Xuan Pierce MD Consult Discharge Plan - Plan Additional Instructions: Wound care- cleanse area with soap and water in the shower daily, home health to re-pack with 1/4 in plain gauze, cover with dry dressing and tape to secure. Complete daily and prn if soiled. Home health has been set up through [facility]. They will contact you with a date and time to complete admission. If you need to contact them please call #[phone] or #[phone]. Referrals: Willow Aguilar CNP [Advanced Practice Nurse] - 10/29/18 4:00 pm Yadi Delgadillo CNP [Primary Care Provider] - (Appointment has been requested) (2) CVA (cerebral vascular accident) Qualifiers: CVA mechanism: unspecified Qualified Code(s): I63.9 - Cerebral infarction, unspecified (3) Diabetes Qualifiers: Diabetes mellitus type: type 2 Diabetes mellitus alf insulin use: without alf use Diabetes mellitus complication status: with hyperglycemia Qualified Code(s): E11.65 - Type 2 diabetes mellitus with hyperglycemia (4) Urinary tract infection Qualifiers: Urinary tract infection type: site unspecified Hematuria presence: with hematuria Qualified Code(s): N39.0 - Urinary tract infection, site not specified; R31.9 - Hematuria, unspecified (10) Sepsis Qualifiers: Sepsis type: sepsis due to unspecified organism Sepsis acute organ dysfunction status: unspecified Qualified Code(s): A41.9 - Sepsis, unspecified organism
[2018-10-25] MEDS: Insulin LISPRO 300 UNITS/3 ML VIAL SQ SCH ×4 (08:35→21:21)
[2018-10-25] MEDS: Aspirin 325 MG TABLET PO SCH (08:36)
[2018-10-25] MEDS: Lactobacillus 1 EACH CAP.SPRINK PO SCH ×2 (08:36→21:21)
[2018-10-25] MEDS: Nystatin POWDER 30 GM BOTTLE TP SCH ×3 (08:37→22:15)
[2018-10-25 08:59] LABS: Basophils % 0.4 %; Eosinophils # 0.2 K/mcL (0.0-0.6); Eosinophils % 1.8 %; Hematocrit 35.4 % (35.3-44.9); Hemoglobin 11.7 g/dL (11.5-15.4); Immature Granulocytes % 1.4 % (0-4); Lymphocytes # 0.8 K/mcL (0.6-4.6); Lymphocytes % 9.8 %; Mean Corpuscular HGB Conc 33.1 g/dL (31.6-35.5); Mean Corpuscular Hemoglobin 29.5 pg (28.0-33.3); Mean Corpuscular Volume 89.4 fL (83.0-100.0); Mean Platelet Volume 9.3 fL (9.4-12.4); Monocytes # 0.9 K/mcL (0.0-1.3); Monocytes % 10.2 %; Neutrophils # 6.4 K/mcL (1.6-8.9); Platelet Count 271 K/mcL (140-400); Red Blood Count 3.96 M/mcL (3.82-4.97); Red Cell Distribution Width 12.4 % (11.5-14.5); Segmented Neutrophils % 76.4 %; White Blood Count 8.3 K/mcL (4.3-11.1)
[2018-10-25 09:19] LABS: BUN/Creatinine Ratio 19 (6-26); Blood Urea Nitrogen 14 mg/dL (8-23); Calcium 8.4 mg/dL (8.6-10.3); Carbon Dioxide 24 mEq/L (23-29); Chloride 107 mEq/L (98-107); Glucose 135 mg/dL (70-105); Osmolality,Calculated 291 (280-300); Potassium 3.2 mEq/L (3.5-5.1); Sodium 139 mEq/L (136-145); eGFR For African Americans > 60 (> 60); eGFR For Non-African Americans > 60 (> 60)
--- NOTE | 2018-10-25 11:00 | Infectious Disease Progress No ---
ID Progress Note Date of Encounter: 10/25/18 Time of Encounter: 10:58 - Subjective Subjective: Patient seen and examined. No acute events noted overnight. Pending operative debridement of the left perianal abscess later today. Denies fevers, chills, or rigors. Denies chest pain, shortness of breath, or cough. Denies nausea, vomiting, diarrhea, constipation. Reports one loose stool per day. Denies abdominal pain or urinary complaints. Reports some mild discomfort at the site of her abscess in the left buttock. Denies oral thrush or skin rashes. - Objective CBC & Chem 7: 10/28/18 01:53 10/28/18 01:53 - Exam Vitals: Temp Pulse Resp BP Pulse Ox 97.7 F 78 16 121/64 94 10/25/18 07:33 10/25/18 07:33 10/25/18 07:33 10/25/18 07:33 10/25/18 07:33 Exam: Head: Atraumatic, normal inspection, normocephalic. Eye: EOMI, PERRLA, no scleral icterus noted. ENT: Mucous membranes moist. No odontogenic infection noted. Neck: Normal inspection, no meningismus. Respiratory: Clear to auscultation. No rales, respiratory distress, rhonchi, or wheezes noted. Cardiovascular: Regular rate and rhythm, S1 and S2 audible. No murmurs, rubs, or gallops. GI: Soft, obese, normal bowel sounds. Nontender. Extremities:No joint swelling, pedal edema, or tenderness noted. Back: Normal inspection. No vertebral tenderness noted. Left buttock erythem atous and indurated and tender to touch. Mild purulent drainage noted. Neurological: Alert, oriented 3, no focal deficits. Psychiatric: normal affect, normal mood. Skin: Dry, intact, warm. Normal color. No rashes. - Assessment and Plan (1) Sepsis Current Visit: Yes Status: Acute The patient had 3 sepsis criteria on admission. Likely secondary to perirectal abscess. Improved. White blood cell count normal. Afebrile. Tachycardia and tachypnea resolved. Blood cultures drawn 10/22/18 are no growth to date 2 sets. Qualifiers: Sepsis type: sepsis due to unspecified organism Sepsis acute organ dysfunction status: unspecified Qualified Code(s): A41.9 - Sepsis, unspecified organism SNOMED Code(s): 56534654 (2) Abscess and cellulitis of gluteal region Current Visit: Yes Status: Acute Location: Left gluteal soft tissue. Concern for necrotizing fascitis based on imaging, but CK level normal. CT 10/24/18: Subcutaneous soft tissue swelling L gluteal soft tissues with a 2.5 x 1.3 cm left perianal fluid collections. There is soft tissue gas extending from the perineum superiorly into the left gluteal region measuring at least 10 cm. Cultures buttock 10/23: pending but gram stain suggesting polymicrobial (moderate gram-positive cocci and many gram-negative rods). Gen. surgery consult and following. Planning operative debridement later today. Currently on clindamycin, Zosyn, and vancomycin. SNOMED Code(s): 261619883 (3) Perirectal abscess Current Visit: Yes Status: Acute SNOMED Code(s): 08903456 (4) Urinary tract infection Current Visit: Yes Status: Acute Asymptomatic. Urine culture positive for Escherichia coli. No indication to treat due to the patient being asymptomatic, but the antibiotics for her perirectal abscess will cover it anyways. Qualifiers: Urinary tract infection type: site unspecified Hematuria presence: with hematuria Qualified Code(s): N39.0 - Urinary tract infection, site not specified; R31.9 - Hematuria, unspecified SNOMED Code(s): 65341406 (5) Diabetes Current Visit: Yes Status: Chronic Recommend aggressive glucose monitoring and control to promote wound healing and prevent reinfection. Management per the primary team. Qualifiers: Diabetes mellitus type: type 2 Diabetes mellitus long-term insulin use: without tappet adjuster use Diabetes mellitus complication status: with hyperglycemia Qualified Code(s): E11.65 - Type 2 diabetes mellitus with hyperglycemia SNOMED Code(s): 24893474 - Recommendations Recommendations: Await wound cultures to finalize. Await blood cultures to finalize. Await Intra-Op cultures and findings. Wound care per the acute care surgery team. Continue vancomycin IV. Pharmacy to dose. Goal trough approximately 15. Continue Zosyn 3.375 g IV every 8 hours. Discontinue clindamycin. Duration of treatment depends on the clinical picture. Monitor renal function and for drug toxicity and dose adjust antibiotics. Consult Discharge Plan - Plan Instructions: Urinary Tract Infection in Women (DC), Diabetes Mellitus Type 2 in Adults (DC), Sepsis (DC) Additional Instructions: Wound care- cleanse area with soap and water in the shower daily, home health to re-pack with 1/4 in plain gauze, cover with dry dressing and tape to secure. Complete daily and prn if soiled. Home health has been set up through [facility]. They will contact you with a date and time to complete admission. If you need to contact them please call #[phone] or #[phone]. Referrals: Willow Aguilar CNP [Advanced Practice Nurse] - 10/29/18 4:00 pm Yadi Delgadillo CNP [Primary Care Provider] - (Appointment has been requested) Prescriptions: Aspirin Enteric Coated [Aspirin EC] 81 mg PO DAILY #30 tablet.dr Prescription Printed Amoxicillin/Clavulanate [Augmentin] 875 mg PO BIDWM 2 Days #4 tablet Prescription Printed Atorvastatin [Lipitor] 80 mg PO HS #60 tablet Prescription Printed OxyCODONE/APAP 5/325 [Percocet 5/325 MG] 1 each PO Q6HR PRN 4 Days #16 tablet PRN Reason: Pain Prescription Printed - Attending Attestation I have personally performed a face to face evaluation on this patient. I have reviewed and agree with the care plan. History and Exam by me shows: Assessment and plan: Sepsis Abscess and cellulitis of the gluteal region polymicrobial final cultures pending patient going to surgery today at 3 Perirectal abscess Recommendations Continue combination of Zosyn/vancomycin/clindamycin for now. We will tailor antibiotics based on the clinical picture and Intra-Op findings. Monitor labs and for drug toxicity
[2018-10-25] MEDS ORDERED: Potassium Chloride 20 MEQ, Lidocaine 1% 2 ML in 0.9 % Sodium Chloride 250 ML IVPB ONE (13:42)
--- NOTE | 2018-10-25 14:11 | Anesthesia Evaluation PreOp ---
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 History: CVA (acute) Other Medical History: Diabetes Type II, Other (rectal abcess) Anesthesia History: Past Anesthesia Alcohol Use: none Drug use: none Medications and Allergies Adipex-P 10/21/18 [History] Glimepiride [Amaryl] 2 mg PO QAM 10/21/18 [History] Pravastatin Sodium [Pravachol] 40 mg PO DAILY 10/21/18 [History] Allergy/AdvReac Type Severity Reaction Status Date / Time No Known Allergies Allergy Verified 10/21/18 17:57 - Meds/Allergy Pre-op Review Medications Reviewed: Yes Allergies Reviewed: Yes Beta Blockers on Current Med List: No Anesthesia Results - Labs 10/25/18 08:34 10/25/18 08:34 Laboratory Tests 10/21/18 17:03 PT 15.0 H INR 1.3 APTT 27.4 - Imaging EKG: report reviewed (Interpretive Statements Sinus rhythm Abnormal R-wave progression, early transition Electronically Signed On 10-22-2018 16:05:33 EDT by Celestine Choudhary) Additional studies: ECHO 10/22/18 Impressions: LVEF 60%. Mild left ventricular diastolic dysfunction. Normal right ventricular structure and function. Mild aortic regurgitation. Mild mitral regurgitation. Mild to moderate tricuspid regurgitation. No pulmonary hypertension. PFO with moderate right to left shunt on saline contrast study. Anesthesia Exam Vital Signs/O2 Sat, Most Current Temp Pulse Resp BP Pulse Ox 98.6 F 79 16 136/87 97 10/25/18 11:16 10/25/18 11:16 10/25/18 11:16 10/25/18 11:16 10/25/18 11:16 - HEENT Pupil (Motor): Pupils equal, EOMI - MESSAGING ARCHITECT LOC: Oriented MESSAGING ARCHITECT Motor: Normal RUE, Normal LUE, Normal RLE, Normal LLE, Normal Face MESSAGING ARCHITECT Sensory: Normal: RUE, LUE, RLE, LLE, Face - Cardiac Rhythm: Regular - Pulmonary Breath Sounds: bilateral Clear Respiratory Effort: Symmetrical Anesthesia Assess/Plan ASA Score: 3, E Level of consciousness: Cooperative Anesthetic Plan: General (with acute CVA, pt is at increased risk of reinfarct and worsening of CVA symptoms and increased risk of periop complications) Monitoring Plan: Standard Monitors Recovery Plan: PACU <Jayesh Hilliard - Last Filed: 10/25/18 15:25> Date of Encounter: 10/25/18 Anesthesia Results - Labs 10/25/18 08:34 10/25/18 08:34 Anesthesia Exam Height: 5'6 Weight: 204 lbs NPO (# of Hours): MN Pain Scale: 0 - HEENT Pupil (Motor): Pupils equal, EOMI Teeth: Normal Oral Opening: Less than or equal to 3 - MESSAGING ARCHITECT LOC: Oriented MESSAGING ARCHITECT Motor: Normal RUE, Normal LUE, Normal RLE, Normal LLE, Normal Face MESSAGING ARCHITECT Sensory: Normal: RUE, LUE, RLE, LLE, Face - Cardiac Rhythm: Regular Murmur: None JVD: No Carotid Bruit: No - Pulmonary Breath Sounds: bilateral Clear Respiratory Effort: Symmetrical Anesthesia Assess/Plan ASA Score: 3 Level of consciousness: Cooperative Anesthetic Plan: General Monitoring Plan: Standard Monitors Recovery Plan: PACU (Discussed GA, agrees to [proceed) <Jelly Woodall M - Last Filed: 10/26/18 08:16> Date of Encounter: 10/26/18 Anesthesia Results - Labs 10/25/18 08:34 10/25/18 08:34 Vital Signs Temp Pulse Resp BP Pulse Ox 10/26/18 07:21 97.3 F L 80 16 133/76 95 10/25/18 22:45 97.9 F 81 16 120/73 95 10/25/18 19:37 98 F 87 14 110/61 96 10/25/18 16:18 98.7 F 75 16 137/79 97 10/25/18 11:16 98.6 F 79 16 136/87 97 Intake and Output 10/25/18 10/26/18 10/26/18 23:59 07:59 15:59 Intake Total 612 / 4212 1100 / 1100 Output Total 600 / 2700 Balance 1512 1100 / 1100 Intake: IV Fluids 612 / 4212 1100 / 1100 0.9 % Sodium Chloride 1,000 ML 1000 / 1000 @ 125 mls/hr IVC .Q8H JENNIFER Rx#: [id number] Zosyn 3.375 GM In 0.9 % Sodium 100 / 300 100 / 100 Chloride (Mini-Bag +) 100 ML @ 25 mls/hr IVPB Q8H [facility] Rx#: [id number] Potassium Chloride 20 MEQ 262 / 262 Xylocaine 2 ML In 0.9 % Sodium Chloride 250 ML @ 131 mls/hr IVPB ONCE ONE Rx#:[id number] Vancocin 1,250 MG In 0.9 % 250 / 500 Sodium Chloride 250 ML @ 166.67 mls/hr IVPB Q12H [facility] Rx#: [id number] Output: Urine 600 / 2700 Other: Weight 94.4 kg Blood Glucose* 134 127 Patient Weight 10/26/18 23:59 Weight 94.[address] 10/21/18 17:09 IMPRESSION: No acute intracranial abnormality. Findings were discussed with Dr. Burris At 5:24 pm on 10/21/2018. D/ / James Lala MD / James Lala MD Interpreting Provider: James Lala MD Brain MRI 10/22/18 00:08 IMPRESSION: 1. Small acute ischemic infarct in the high posterior left frontal lobe. No hemorrhage or mass effect. 2. Mild chronic white matter microvascular ischemic changes. 3. Normal MRA of the head. 4. Normal MRA of the neck. D/ / Fabian Weathers / Fabian Weathers Interpreting Provider: Fabian Weathers Pelvis CT 10/24/18 08:59 IMPRESSION: Subcutaneous soft tissue swelling within the left gluteal soft tissues with a 2.5 x 1.3 cm left perianal fluid collection. There is associated soft tissue gas extending from the perineum superiorly into the left gluteal region measuring at least 10 cm in the craniocaudal dimension. The largest gas pocket measures approximately 5.5 x 1.9 cm. Recommend correlation with any clinical signs of necrotizing fasciitis. Critical results were called by Dr. Xuan Pierce MD to [place] CNP on 10/24/2018 at 11:11. D/ / 10/24/2018 11:15:28 Xuan Pierce MD / [email or web address] Interpreting Provider: Xuan Pierce MD Laboratory Results 10/25/18 10/25/18 10/25/18 07:34 11:17 16:22 POC Glucose 116 H 109 H 87 Vancomycin Trough 10/25/18 10/26/18 20:23 04:15 POC Glucose 134 H Vancomycin Trough 20 H
[2018-10-25] MEDS ORDERED: Lidocaine HCL 4 ML Topical Solution (Laryng-O-Jet Kit Sterile Pak) TP ONE (15:18)
[2018-10-25] MEDS ORDERED: *HR* Succinylcholine 200 MG/10 ML VIAL IVP ONE (15:18)
[2018-10-25] MEDS ORDERED: *HR* Rocuronium Bromide 50 MG/5 ML VIAL ONE (15:18)
[2018-10-25] MEDS ORDERED: Ondansetron 4 MG/2 ML VIAL ONE (15:18)
[2018-10-25] MEDS ORDERED: *HR* FentaNYL (PF) 100 MCG/2 ML VIAL ONE (15:18)
[2018-10-25] MEDS ORDERED: *HR* Propofol 200 MG/20 ML VIAL IVP ONE (15:18)
[2018-10-25] MEDS ORDERED: *HR* Midazolam HCl 2 MG/2 ML VIAL ONE (15:18)
[2018-10-25] MEDS ORDERED: Lidocaine -MPF 2% 2 ML VIAL ONE (15:18)
[2018-10-25] MEDS ORDERED: Dexamethasone 4 MG/ML VIAL ONE (15:18)
[2018-10-25] MEDS ORDERED: CefOXitin 2,000 MG VIAL ONE (15:22)
[2018-10-25] MEDS ORDERED: CefOXitin 1,000 MG VIAL ONE (15:23)
--- NOTE | 2018-10-25 16:21 | AcuteCareSurgery Progress Note ---
Date of Encounter: 10/25/18 Time of Encounter: 16:18 - Assessment and Plan (1) Perirectal abscess Current Visit: Yes Status: Acute 68F with recent CVA with perirectal abscess; the patient is in need for I&D, but there is great risk with her recent stroke; will discuss further with neurology and will plan for surgery pending their evaluation/recommendation diet as tolerated NPO at midnight cont IV abx plan for OR on 10/26 pending neurology eval Subjective Patient reports: no new complaints, feels better, afebrile, other (recent stroke) Objective Vital Signs - Last 8 Hours Temp Pulse Resp BP Pulse Ox 10/25/18 11:16 98.6 F 79 16 136/87 97 Intake and Output 10/25/18 10/25/18 10/25/18 07:59 15:59 23:59 Intake Total 150 / 3600 3450 / 3600 Output Total 1800 / 2100 300 / 2100 Balance -1650 / 1500 3150 / 1500 Intake: IV Fluids 150 / 3600 3450 / 3600 0.9 % Sodium Chloride 1,000 ML 3000 / 3000 @ 100 mls/hr IVC .Q10H JENNIFER Rx#: [id number] Cleocin Premix 600 MG/50 ML 600 50 / 150 100 / 150 mg In 50 ml @ 50 mls/hr IVPB Q6HR JENNIFER Rx#:[id number] Zosyn 3.375 GM In 0.9 % Sodium 100 / 200 100 / 200 Chloride (Mini-Bag +) 100 ML @ 25 mls/hr IVPB Q8H JENNIFER Rx#: [id number] Vancocin 1,250 MG In 0.9 % 250 / 250 Sodium Chloride 250 ML @ 166.67 mls/hr IVPB Q12H JENNIFER Rx#: [id number] Output: Urine 1800 / 2100 300 / 2100 Other: Stool Size Moderate Stool Consistency soft Stool Color Brown Weight 92.9 kg Blood Glucose* 116 109 Patient Weight 10/25/18 23:59 Weight 92.9 kg - General physical appearance no distress - Respiratory normal expansion, normal respiratory effort - Cardiovascular Cardiovascular exam: Present: RRR - Abdomen Abdomen: Present: soft - Rectum other (small 1cm opening; erythema and induration; positive drianage; semipurulent; ) - Neurologic CN 2-12 grossly intact - Psychiatric oriented to time, oriented to person, oriented to place - Labs 10/25/18 08:34 10/25/18 08:34 Diabetes panel 10/25/18 Range/Units 08:34 Sodium 139 (136-145) mEq/L Potassium 3.2 L (3.5-5.1) mEq/L Chloride 107 (98-107) mEq/L Carbon Dioxide 24 (23-29) mEq/L BUN 14 (8-23) mg/dL Creatinine 0.74 (0.60-1.20) mg/dL Glucose 135 H (70-105) mg/dL Calcium 8.4 L (8.6-10.3) mg/dL Calcium panel 10/25/18 Range/Units 08:34 Calcium 8.4 L (8.6-10.3) mg/dL Pituitary panel 10/25/18 Range/Units 08:34 Sodium 139 (136-145) mEq/L Potassium 3.2 L (3.5-5.1) mEq/L Chloride 107 (98-107) mEq/L Carbon Dioxide 24 (23-29) mEq/L BUN 14 (8-23) mg/dL Creatinine 0.74 (0.60-1.20) mg/dL Glucose 135 H (70-105) mg/dL Calcium 8.4 L (8.6-10.3) mg/dL Adrenal panel 10/25/18 Range/Units 08:34 Sodium 139 (136-145) mEq/L Potassium 3.2 L (3.5-5.1) mEq/L Chloride 107 (98-107) mEq/L Carbon Dioxide 24 (23-29) mEq/L BUN 14 (8-23) mg/dL Creatinine 0.74 (0.60-1.20) mg/dL Glucose 135 H (70-105) mg/dL Calcium 8.4 L (8.6-10.3) mg/dL Consult Discharge Plan - Plan Additional Instructions: Wound care- cleanse area with soap and water in the shower daily, home health to re-pack with 1/4 in plain gauze, cover with dry dressing and tape to secure. Complete daily and prn if soiled. Home health has been set up through [facility]. They will contact you with a date and time to complete admission. If you need to contact them please call #[phone] or #[phone]. Referrals: Willow Aguilar CNP [Advanced Practice Nurse] - 10/29/18 4:00 pm Yadi Delgadillo CNP [Primary Care Provider] - (Appointment has been requested)
--- NOTE | 2018-10-25 17:27 | Neurology - Consult Note ---
Date of Encounter: 10/25/18 Time of Encounter: 17:26 Assessment and Plan (1) CVA (cerebral vascular accident) Current Visit: Yes Status: Acute The patient had acute infarct few days ago and is needing surgical treatment due to perirectal abscess. The risk of having major cerebrocardiobascular morbidity and mortality would be significantly increased in patients with acute infarct who is undergoing nonvascular surgery especially within 3 months after hte onset of stroke. The risk is forever increased with history of prior stroke but the risk would tend to plateau after 9 months from some literature. Therefore in this particular case this significantly increased risk of cerebrocardiovascular morbidity and mortality is discussed with the patient and unfortunately such risk has to be assumed. Patient is still in acute phase of stroke and all the measures related to acute management of acute CVA should be enforced, especially the patient should be avoid hypotension to ensure adequate cerebral perfusion. During acute phase of acute CVA permissive BP should be allowed however, i am not aware if there is any guideline regarding to BP control in such case during urgent surgical procedure. It would emphasized that hypotension should be avoided. Please call if any questions. Please continue medical and supportive care Qualifiers: CVA mechanism: unspecified Qualified Code(s): I63.9 - Cerebral infarction, unspecified History of Present Illness Chief complaint: surgical clearance due to acute stroke HPI: Ms. Oakes is a 68 year old female with acute CVA diagnosed on 10/22/2018 who was found to have perirectal abscess, consulted for surgical clearance due to acute infarct. Patient was seen by neurology few days ago and recommend stroke work up as well as treatment recommendation. However, patient was subsequently found to have perirectal abscess that requires surgical treatment. Neurology was consulted for neurological clearance. Patient had small lacunar infarct involving the left posterior frontal lobe no h emorrhage or mass effects. Normal MRA of neck and head noted. She has initially right sided weakness which almost resolved. She has no speech difficulty. Past Med Surg Social Fam HX - Past Medical History Medical history: diabetes, hyperlipidemia, hypertension - Past Surgical History Surgical History: no surgical history Additional surgical history: Colonoscopy 01/2012 - Social History Smoking Status: Never smoker Smokeless Tobacco Status: No Alcohol use: none Drug use: none Medications and Allergies Adipex-P 10/21/18 [History] Glimepiride [Amaryl] 2 mg PO QAM 10/21/18 [History] Pravastatin Sodium [Pravachol] 40 mg PO DAILY 10/21/18 [History] Allergy/AdvReac Type Severity Reaction Status Date / Time No Known Allergies Allergy Verified 10/21/18 17:57 All Systems: The remainder of the systems were reviewed and are negative - Constitutional Constitutional ROS IM: anorexia, fatigue, malaise, night sweats - Nose, Mouth, Throat Nose, mouth and throat: abnormal hearing (No) - Cardiovascular Cardiovascular ROS IM: acrocyanosis (no), chest pain (no), chest pain at rest (no), chest pain with activity (no), claudication (no), diaphoresis (no) - Respiratory Respiratory IM: cough (no) - Gastrointestinal Gastrointestinal: abdominal pain (yes), change in stool character (yes) - Genitourinary Genitourinary ROS: difficulty urinating (no), difficulty voiding (yes) - Musculoskeletal Musculoskeletal ROS IM: abnormal gait (no) - Neurological Neurological ROS: abnormal gait (yes), abnormal movements (no), abnormal speech (yes), focal weakness (yes) - Psychiatric Psychiatric general PM: abnormal sleep pattern (no), anhedonia (no), anxiety (no) Physical Examination - Vital Signs Vital Signs: Initial Vital Signs Temp Pulse Resp BP Pulse Ox 98.1 F 111 20 103/71 97 10/21/18 16:59 10/21/18 16:59 10/21/18 16:59 10/21/18 16:59 10/21/18 16:59 - Constitutional General appearance: comfortable - Neurologic Detailed motor examination: full strength in all major muscle groups Motor examination - right side: 5/5: deltoids, biceps, triceps, wrist flexion, wrist extension, email engineer, hip flexors, tibialis Anterior, quadriceps, toe extension (EHL), plantarflexion Motor examination - left side: 5/5: deltoids, biceps, triceps, wrist flexion, wrist extension, hip flexors, email engineer, quadriceps, tibialis Anterior, toe extension (EHL), plantarflexion Detailed sensory examination: intact Posture: other (No) Reflex and gait examination: other (Gait not tested) Reflexes: Biceps: 2+, Triceps: 2+, Brachioradialis: 2+, Patella: 2+, Achilles: 2+ Mental Status Examination: awake, alert, oriented to person, oriented to place, oriented to time, follows commands appropriately, answers questions appropriately, no agnosia, no aphasia, no aproxia Cranial nerve examination: PERRL, EOMI, visual reeves intact, corneal reflexes brisk symmetrically, sensory to face intact, mastication intact, no facial asymmetry is present, no dysarthria, hearing is intact symmetrically, soft palate elevates bilaterally upon phonation, gag reflex intact, flexes SCM and trapezius muscles symmetrically with full power, tongue protrudes midline, no atrophy or facial fasiculations present Cerebellar examination: no dysmetria, performs finger to nose and heel to maloney symmetrically without ataxia, no gait ataxia, no truncal ataxia, no difficulty with rapid alternating movements Results - Laboratory Findings CBC and BMP: 10/25/18 08:34 10/25/18 08:34 Abnormal lab findings: Abnormal lab results WBC 11.5 K/mcL (4.3-11.1) H 10/24/18 04:32 MPV 9.3 fL (9.4-12.4) L 10/25/18 08:34 Neutrophils # 9.4 K/mcL (1.6-8.9) H 10/24/18 04:32 Monocytes # 1.4 K/mcL (0.0-1.3) H 10/23/18 03:58 PT 15.0 Seconds (9.4-12.1) H 10/21/18 17:03 Sodium 133 mEq/L (136-145) L 10/21/18 17:03 Potassium 3.2 mEq/L (3.5-5.1) L 10/25/18 08:34 Carbon Dioxide 22 mEq/L (23-29) L 10/22/18 01:49 BUN/Creatinine Ratio 30 (6-26) H 10/24/18 04:32 Glucose 135 mg/dL (70-105) H 10/25/18 08:34 POC Glucose 125 mg/dL (70-99) H 10/24/18 19:49 Hemoglobin A1c 6.4 % (-5.6) H 10/22/18 01:49 Calculated Osmolality 302 (280-300) H 10/24/18 04:32 Calcium 8.4 mg/dL (8.6-10.3) L 10/25/18 08:34 Total Bilirubin 1.1 mg/dL (0.3-1.0) H 10/22/18 01:49 AST 40 Units/L (13-39) H 10/21/18 17:03 Creatine Kinase 20 Units/L (30-223) L 10/25/18 08:34 Albumin 3.2 g/dL (3.5-5.7) L 10/22/18 01:49 Albumin/Globulin Ratio 0.9 (1.1-2.2) L 10/22/18 01:49 HDL Cholesterol 26 mg/dL (40-59) L 10/23/18 03:58 Urine Clarity Cloudy (Clear) A 10/21/18 20:40 Ur Specific [place] 1.007 (1.010-1.025) L 10/21/18 20:40 Urine Ketones 15 mg/dL (Negative) H 10/21/18 20:40 Urine Blood Moderate (Negative) H 10/21/18 20:40 Urine Nitrite Positive (Negative) A 10/21/18 20:40 Urine Urobilinogen 2.0 mg/dL (Normal) H 10/21/18 20:40 Ur Leukocyte Esterase Large (Negative) H 10/21/18 20:40 Urine Microscopic WBC TNTC per hpf (0-3) H 10/21/18 20:40 Ur Squamous Epith Cells Many per lpf (None-Few) H 10/21/18 20:40 Urine Bacteria Many per hpf (None-Few) H 10/21/18 20:40 Urine Yeast Few per hpf (None Seen) H 10/21/18 20:40 Ur Culture Indicated? YES (NO) A 10/21/18 20:40 Vancomycin Trough 11 mcg/mL (5-10) H 10/24/18 04:32 - Diagnostic Findings Additional findings: EXAMINATION: MRA OF THE HEAD WITHOUT CONTRAST; MRA OF THE NECK WITH AND WITHOUT CONTRAST; MRI OF THE BRAIN WITHOUT CONTRAST 10/22/2018 6:00 pm; 10/22/2018 5:59 pm: TECHNIQUE: MRA of the head was performed utilizing [id number] imaging with MIP images. No intravenous contrast was administered.; Multiplanar multisequence MRA of the neck was performed with and without the administration of intravenous contrast. Stenosis of the internal carotid arteries measured using NASCET criteria.; Multiplanar multisequence MRI of the brain was performed without the administration of intravenous contrast. COMPARISON: None. HISTORY: ORDERING SYSTEM PROVIDED HISTORY: Right upper extremity weakness, possible CVA Initial encounter. Acute illness. 3 days of dizziness. FINDINGS: MRI BRAIN: INTRACRANIAL STRUCTURES/VENTRICLES: There is a small focus of diffusion restriction and T2/FLAIR hyperintensity in the high posterior frontal subcortical white matter and overlying cortex. There is no intracranial mass. Parenchymal volume is commensurate age. There is mild patchy cerebral white matter T2/FLAIR hyperintensity, nonspecific but generally ascribed to sequela of chronic microvascular ischemia. No mass effect or midline shift. No evidence of an acute intracranial hemorrhage. The ventricles and sulci are normal in size and configuration. The sellar/suprasellar regions appear unremarkable. The normal signal voids within the major intracranial vessels appear maintained. ORBITS: The visualized portion of the orbits demonstrate no acute abnormality. SINUSES: The visualized paranasal sinuses and mastoid air cells are well aerated. BONES/SOFT TISSUES: The bone marrow signal intensity appears normal. The soft tissues demonstrate no acute abnormality. MRA NECK: AORTIC ARCH/GREAT VESSELS: There is a normal branch pattern of the aortic arch. No significant stenosis is seen of the innominate artery or subclavian arteries. CAROTID ARTERIES: The common carotid arteries are normal in appearance without evidence of a flow limiting stenosis. The internal carotid arteries are normal in appearance without evidence of a flow limiting stenosis by NASCET criteria. VERTEBRAL ARTERIES: The vertebral arteries both arise from the subclavian arteries and are normal in caliber without evidence of flow limiting stenosis. MRA HEAD: ANTERIOR CIRCULATION: The internal carotid arteries are normal in course and caliber without focal stenosis. The anterior cerebral and middle cerebral arteries demonstrate no focal stenosis. The right anterior cerebral artery A1 segment is hypoplastic. POSTERIOR CIRCULATION: The posterior cerebral arteries demonstrate no focal stenosis. The vertebral and basilar arteries appear unremarkable. OTHER: No aneurysm. MR/MR head/brain wo con IMPRESSION: 1. Small acute ischemic infarct in the high posterior left frontal lobe. No hemorrhage or mass effect. 2. Mild chronic white matter microvascular ischemic changes. 3. Normal MRA of the head. 4. Normal MRA of the neck. D/ / Fabian Weathers / Fabian Weathers Interpreting Provider: Fabian Weathers OF THE HEAD WITHOUT CONTRAST; MRA OF THE NECK WITH AND WITHOUT CONTRAST; MRI OF THE BRAIN WITHOUT CONTRAST 10/22/2018 6:00 pm; 10/22/2018 5:59 pm: TECHNIQUE: MRA of the head was performed utilizing [id number] imaging with MIP images. No intravenous contrast was administered.; Multiplanar multisequence MRA of the neck was performed with and without the administration of intravenous contrast. Stenosis of the internal carotid arteries measured using NASCET criteria.; Multiplanar multisequence MRI of the brain was performed without the administration of intravenous contrast. COMPARISON: None. HISTORY: ORDERING SYSTEM PROVIDED HISTORY: Right upper extremity weakness, possible CVA Initial encounter. Acute illness. 3 days of dizziness. FINDINGS: MRI BRAIN: INTRACRANIAL STRUCTURES/VENTRICLES: There is a small focus of diffusion restriction and T2/FLAIR hyperintensity in the high posterior frontal subcortical white matter and overlying cortex. There is no intracranial mass. Parenchymal volume is commensurate age. There is mild patchy cerebral white matter T2/FLAIR hyperintensity, nonspecific but generally ascribed to sequela of chronic microvascular ischemia. No mass effect or midline shift. No evidence of an acute intracranial hemorrhage. The ventricles and sulci are normal in size and configuration. The sellar/suprasellar regions appear unremarkable. The normal signal voids within the major intracranial vessels appear maintained. ORBITS: The visualized portion of the orbits demonstrate no acute abnormality. SINUSES: The visualized paranasal sinuses and mastoid air cells are well aerated. BONES/SOFT TISSUES: The bone marrow signal intensity appears normal. The soft tissues demonstrate no acute abnormality. MRA NECK: AORTIC ARCH/GREAT VESSELS: There is a normal branch pattern of the aortic arch. No significant stenosis is seen of the innominate artery or subclavian arteries. CAROTID ARTERIES: The common carotid arteries are normal in appearance without evidence of a flow limiting stenosis. The internal carotid arteries are normal in appearance without evidence of a flow limiting stenosis by NASCET criteria. VERTEBRAL ARTERIES: The vertebral arteries both arise from the subclavian arteries and are normal in caliber without evidence of flow limiting stenosis. MRA HEAD: ANTERIOR CIRCULATION: The internal carotid arteries are normal in course and caliber without focal stenosis. The anterior cerebral and middle cerebral arteries demonstrate no focal stenosis. The right anterior cerebral artery A1 segment is hypoplastic. POSTERIOR CIRCULATION: The posterior cerebral arteries demonstrate no focal stenosis. The vertebral and basilar arteries appear unremarkable. OTHER: No aneurysm. MR/MR angio head wo con IMPRESSION: 1. Small acute ischemic infarct in the high posterior left frontal lobe. No hemorrhage or mass effect. 2. Mild chronic white matter microvascular ischemic changes. 3. Normal MRA of the head. 4. Normal MRA of the neck. D/ / Fabian Weathers / Fabian Weathers Interpreting Provider: Fabian Weathers /EV echocardiogram Impressions: LVEF 60%. Mild left ventricular diastolic dysfunction. Normal right ventricular structure and function. Mild aortic regurgitation. Mild mitral regurgitation. Mild to moderate tricuspid regurgitation. No pulmonary hypertension. PFO with moderate right to left shunt on saline contrast study. Consult Discharge Plan - Plan Additional Instructions: Wound care- cleanse area with soap and water in the shower daily, home health to re-pack with 1/4 in plain gauze, cover with dry dressing and tape to secure. Complete daily and prn if soiled. Home health has been set up through [facility]. They will contact you with a date and time to complete admission. If you need to contact them please call #[phone] or #[phone]. Referrals: Willow Aguilar CNP [Advanced Practice Nurse] - 10/29/18 4:00 pm Yadi Delgadillo CNP [Primary Care Provider] - (Appointment has been requested)
[2018-10-26] MEDS: 0.9 % Sodium Chloride 1,000 ML IVC SCH ×3 (00:24→08:49)
[2018-10-26] MEDS: *HR* Heparin 5,000 UNIT/ML VIAL SQ SCH ×2 (05:15→17:06)
[2018-10-26] MEDS: Piperacillin/Tazobactam 3.375 GM in 0.9 % Sodium Chloride Mini Bag 100 ML IVPB SCH ×3 (05:15→20:50)
--- NOTE | 2018-10-26 08:34 | Internal Med Progress Note ---
Hospitalist Progress Note - Encounter Date of Encounter: 10/26/18 Time of Encounter: 08:34 - Subjective Interval History: Patient was seen and examined at bedside she has no complaints today pain is controlled. States her right arm function is back to normal. We did discuss impending surgery patient verbalizes understanding of risks of possible stroke, and verbalizes agreement to proceed with surgery. I did answer questions concerning postop and that she will be transferred to a surgical floor where she can be monitored more closely. She states that she did have one loose stool yesterday however no other loose stools or diarrhea overnight. - Exam Vitals: Temp Pulse Resp BP Pulse Ox 97.3 F L 80 16 133/76 95 10/26/18 07:21 10/26/18 07:21 10/26/18 07:21 10/26/18 07:21 10/26/18 07:21 Exam: Skin: Patient has red area with a small opening to the right gluteal fold with no drainage Eyes: Sclera is white. There is no discharge from eyes. ENMT: Oral/pharyngeal mucosa is normal in appearance. There is no discharge from nose or ears. Respiratory: Normal breath sounds with no crackles and wheezes bilaterally. CV: Heart is regular with no gallop or murmur. GI: Abdomen is flat and soft with no palpable mass or visceromegaly. : There is no tenderness in patient's flanks bilaterally. Neuro exam: He has good strength in upper and lower extremities. He has normal eye movements. Psychiatric: He has normal affect. His thought process is appropriate to the situation. - Assessment and Plan (1) Right arm weakness Current Visit: Yes Status: Acute Assessment and Plan: Possibly secondary to CVA. Management as below. 10/23 MRI of head and brain without contrast did reveal a small acute ischemic infarct in the high posterior left frontal lobe no hemorrhage or mass effect This has improved patient has back to baseline- 10/24 This seems to have this resolved patient is back to baseline continue with PT and OT 10/25 As above 10/26 Patient appears to be back to baseline (2) CVA (cerebral vascular accident) Current Visit: Yes Status: Acute Assessment and Plan: Patient was evaluated by neurology [facility]. Recommended patient have echocardiogram, MRI head, MRA head and neck. They also recommended that the profile and A1c. Patient has passed bedside swallow eval. Obtain MRIs as requested follow-up results Lipid panel A1c PT and OT in the morning 10/23 MR/MR head/brain wo con IMPRESSION: 1. Small acute ischemic infarct in the high posterior left frontal lobe. No hemorrhage or mass effect. 2. Mild chronic white matter microvascular ischemic changes. 3. Normal MRA of the head. 4. Normal MRA of the neck. Carotid duplex-preliminary normal carotids Cardiac echo Impressions: LVEF 60%. Mild left ventricular diastolic dysfunction. Normal right ventricular structure and function. Mild aortic regurgitation. Mild mitral regurgitation. Mild to moderate tricuspid regurgitation. No pulmonary hypertension. PFO with moderate right to left shunt on saline contrast study. Cont ASA statin Neurology consulted Will discuss PFO with cardiology - neurology recommends no anticoagulation at this time continue with aspirin because stroke does not appear to be embolic 10/24 Patient does not have any focal weaknesses at this time appears her right side is back to baseline Continue with PT and OT Discuss PFO with cardiology Dr. Crowley recommends continuation of aspirin therapy full dose and follow-up as outpatient 10/25 Continued aspirin and statin PTOT Follow-up with cardiology and neurology as outpatient 10/26 Continue with aspirin and statin Follow-up with cardiology and neurology as outpatient PT/OT (3) Diabetes Current Visit: Yes Status: Acute Assessment and Plan: Patient is not an insulin dependent diabetic Monitor sugars ACHS Diabetic diet Low dose insulin sliding scale as needed Hold home meds. Check A1c in the morning 10/23 Hemoglobin A1c was 6.4 -holding oral medication for now pain continue with Accu- Cheks before meals at bedtime and sliding scale insulin 10/24 Continue with Accu-Cheks before meals at bedtime with sliding scale insulin 10/25 Continued Accu-Cheks before meals at bedtime with sliding scale insulin 10/26 Accu-Cheks before meals at bedtime with sliding scale insulin (4) Urinary tract infection Current Visit: Yes Status: Ruled-out Assessment and Plan: Patient's urinalysis positive for urinary tract infection. Likely related to her elevated white count. Started on ceftriaxone Follow-up urine culture when available Monitor for worsening signs of infection. 10/23 Patient continues to have elevated white count no fever Urine culture growing E coli- placed on zosyn 10/24 Patient is asymptomatic we will continue with Zosyn 10/25 Asymptomatic currently on Zosyn 10/26 Asymptomatic however currently on Zosyn for perirectal abscess which we will continue (5) DVT prophylaxis Current Visit: Yes Status: Acute Assessment and Plan: Subcutaneous heparin (6) Elevated bilirubin Current Visit: Yes Status: Acute Assessment and Plan: Patient has history of mildly elevated bilirubins in the past, she has slightly elevated AST as well. Patient denies history of liver disease. Repeat total bilirubin was decreased at 1.1. Continue to monitor (7) Abscess and cellulitis of gluteal region Current Visit: Yes Status: Acute Assessment and Plan: Patient has redness and warmth with firm skin to right buttocks there is a small lesion and right gluteal fold-large amount of purulent brown foul-smelling drainage-wound culture obtained and sent Patient placed on vancomycin and Zosyn Consult acute surgery for possible I&D 10/24 CT of pelvisrevealed subcutaneous soft tissue swelling within the left gluteal soft tissue with a 2.51.3 cm left perianal fluid collection that is associated with soft tissue gas extending from the perineum superiorly into the left ear region measuring at least 10 cm. The large gas pocket measuring approximately 5.51.9 cm. surgery has been consulted and patient will undergo I&D on 10/25/2018 -Cultures obtained 10/23 pending Gram stain suggesting polymicrobial continue with vancomycin and Zosyn and cefepime Infectious disease has been consulted and appreciate recommendations Surgery has been consulted for I&D 10/25/2018 patient will be nothing by mouth after midnight 10/25 Infectious disease and surgery has been consulted and appreciate recommendations Nothing by mouth at this time for pending surgical I&D today Continue with vancomycin and Zosyn and cefepime 10/26 Infectious disease and surgery has been consulted and appreciate recommendations Impending I&D per surgical services today- she has been evaluated by neurology due to recent stroke a few days ago. According to neurology the risk of having major cerebrocardiobascular morbidity and mortality would be significantly increased in patients with acute infarct who is undergoing nonvascular surgery especially within 3 months after hte onset of stroke. Neurology recommending permissive hypertension be allowed and to avoid hypotension-discussed with the patient who verbalizes understanding he would like to continue with surgical intervention Nothing by mouth and will undergo I&D today Continue with vancomycin and Zosyn and cefepime (8) Patent foramen ovale Current Visit: Yes Status: Acute Assessment and Plan: Echocardiogram does show evidence of PFO with moderate to right to left shunt CVA does not appear to be embolic in nature and neurology recommending continuing aspirin with no anticoagulation We will discuss with cardiology 10/24 I did discuss with Dr. Crowley recommends to continue full dose aspirin and to follow up with cardiology as outpatient 10/25 Continue with for aspirin follow up with cardiolog 10/26 Continue with full aspirin therapy and follow-up with cardiology as outpatient (9) Perirectal abscess Current Visit: Yes Status: Acute Assessment and Plan: Patient was evaluated by surgery recommending surgical I&D and planning a rectal exam under anesthesia for possible georgiana of anal fistula Patient will nothing by mouth after midnight see above (10) Sepsis Current Visit: Yes Status: Acute Assessment and Plan: Secondary to abscess and cellulitis-she has had 3 sirs criteria with elevated temperature tachycardia leukocytosis Wound culture obtained 10/23 pending but Gram stain suggesting polymicrobial Patient initiated on vancomycin and Zosyn and cefepime which we will continue Blood cultures no growth to date Infectious disease has been consulted and appreciate recommendations We will continue with IV fluids monitoring intake output and lab work 10/26 White count greatly improving today no tachycardia and no fevers continue with IV fluids to maintain blood pressure which has been stable at this time Wound cultures obtained on 10/23 pending but Gram stain suggesting polymicrobial which we will continue with vancomycin and Zosyn and cefepime Blood cultures with no growth to date Infectious disease has been consulted and appreciate recommendations Continue to monitor intake output and lab work - Time Spent with Patient Total time spent is greater than 50% in coordination of care (as documented) at patient's floor/unit and/or counseling patient: Internal Medicine: Result - Labs CBC & Chem 7: 10/25/18 08:34 10/25/18 08:34 Labs: Short CBC 10/25/18 Range/Units 08:34 WBC 8.3 (4.3-11.1) K/mcL Hgb 11.7 (11.5-15.4) g/dL Hct 35.4 (35.3-44.9) % Plt Count 271 (140-400) K/mcL Neutrophils # 6.4 (1.6-8.9) K/mcL BMP 10/25/18 08:34 Sodium 139 Potassium 3.2 L Chloride 107 Carbon Dioxide 24 BUN 14 Creatinine 0.74 Glucose 135 H Calcium 8.4 L - ABG Interpretation ABG results: PT/INR, D-dimer PT 15.0 Seconds (9.4-12.1) H 10/21/18 17:03 - Impressions Impressions Pelvis CT 10/24/18 08:59 IMPRESSION: Subcutaneous soft tissue swelling within the left gluteal soft tissues with a 2.5 x 1.3 cm left perianal fluid collection. There is associated soft tissue gas extending from the perineum superiorly into the left gluteal region measuring at least 10 cm in the craniocaudal dimension. The largest gas pocket measures approximately 5.5 x 1.9 cm. Recommend correlation with any clinical signs of necrotizing fasciitis. Critical results were called by Dr. Xuan Pierce MD to [place] Canada CNP on 10/24/2018 at 11:11. D/ / 10/24/2018 11:15:28 Xuan Pierce MD / cale Interpreting Provider: Xuan Pierce MD Consult Discharge Plan - Plan Additional Instructions: Wound care- cleanse area with soap and water in the shower daily, home health to re-pack with 1/4 in plain gauze, cover with dry dressing and tape to secure. Complete daily and prn if soiled. Home health has been set up through [facility]. They will contact you with a date and time to complete admission. If you need to contact them please call #[phone] or #[phone]. Referrals: Willow Aguilar CNP [Advanced Practice Nurse] - 10/29/18 4:00 pm Yadi Delgadillo CNP [Primary Care Provider] - (Appointment has been requested) (2) CVA (cerebral vascular accident) Qualifiers: CVA mechanism: unspecified Qualified Code(s): I63.9 - Cerebral infarction, unspecified (3) Diabetes Qualifiers: Diabetes mellitus type: type 2 Diabetes mellitus fci insulin use: without intermediate designer use Diabetes mellitus complication status: with hyperglycemia Qualified Code(s): E11.65 - Type 2 diabetes mellitus with hyperglycemia (4) Urinary tract infection Qualifiers: Urinary tract infection type: site unspecified Hematuria presence: with hematuria Qualified Code(s): N39.0 - Urinary tract infection, site not specified; R31.9 - Hematuria, unspecified (10) Sepsis Qualifiers: Sepsis type: sepsis due to unspecified organism Sepsis acute organ dysf unction status: unspecified Qualified Code(s): A41.9 - Sepsis, unspecified organism
[2018-10-26] MEDS: Insulin LISPRO 300 UNITS/3 ML VIAL SQ SCH ×4 (08:36→20:57)
[2018-10-26] MEDS: Aspirin 325 MG TABLET PO SCH (08:48)
[2018-10-26] MEDS: Lactobacillus 1 EACH CAP.SPRINK PO SCH ×2 (08:48→20:52)
[2018-10-26] MEDS: Nystatin POWDER 30 GM BOTTLE TP SCH ×2 (08:49→16:21)
[2018-10-26] MEDS ORDERED: Famotidine 20 MG/2 ML VIAL ONE (10:02)
[2018-10-26] MEDS ORDERED: Acetaminophen IV 1,000 MG/100 ML INFUS..BTL ONE (10:02)
[2018-10-26] MEDS ORDERED: *HR* Propofol 200 MG/20 ML VIAL IVP ONE (10:05)
[2018-10-26] MEDS ORDERED: *HR* FentaNYL (PF) 100 MCG/2 ML VIAL ONE ×2 (10:05→10:30)
[2018-10-26] MEDS ORDERED: Lidocaine -MPF 2% 2 ML VIAL ONE (10:06)
[2018-10-26] MEDS ORDERED: Ondansetron 4 MG/2 ML VIAL ONE (10:18)
[2018-10-26] MEDS ORDERED: Dexamethasone 4 MG/ML VIAL ONE (10:18)
[2018-10-26] MEDS ORDERED: *HR* Labetalol 20 MG/4 ML SYRINGE IVP PRN (11:18)
[2018-10-26] MEDS ORDERED: *HR* Promethazine 25 MG/ML VIAL IVP PRN (11:18)
[2018-10-26] MEDS ORDERED: *HR* HYDROmorphone (PF) 1 MG/ML SYRINGE IVP PRN (11:18)
[2018-10-26] MEDS ORDERED: *HR* HYDROmorphone 2 MG TABLET PO PRN (11:18)
[2018-10-26] MEDS ORDERED: *HR* OxyCODONE Immed Rel 5 MG TABLET PO PRN (11:18)
--- NOTE | 2018-10-26 12:19 | AcuteCareSurgery Progress Note ---
Date of Encounter: 10/26/18 Time of Encounter: 12:15 - Assessment and Plan (1) Perirectal abscess Current Visit: Yes Status: Acute 68F with recent CVA with perirectal abscess now s/p incision and drainage of left side perirectal abscess, exicionsal debridement of left perirectal abscess; HDS; no worsening neurological deficits diet as tolerated cont IV abx x 48hrs PO pain control sitz bath daily daily packing with wet to dry dressings will cont to follow Subjective Patient reports: no new complaints, afebrile Objective Vital Signs - Last 8 Hours Temp Pulse Resp BP Pulse Ox 10/26/18 12:10 97.6 F 75 16 135/87 97 10/26/18 12:02 97.7 F 69 16 150/88 97 10/26/18 11:39 97.5 F L 62 14 151/92 97 10/26/18 11:27 99.0 F 72 18 138/81 95 10/26/18 11:17 99.3 F 70 18 144/88 98 10/26/18 11:07 74 20 144/88 98 10/26/18 10:57 72 24 131/80 97 10/26/18 10:47 97.6 F 76 24 138/83 92 10/26/18 07:21 97.3 F L 80 16 133/76 95 Intake and Output 10/25/18 10/26/18 10/26/18 23:59 07:59 15:59 Intake Total 612 / 4212 1100 / 2200 1100 / 2200 Output Total 600 / 2700 10 / 10 Balance 12 / 1512 1100 / 2190 1090 / 2190 Intake: IV Fluids 612 / 4212 1100 / 2200 1100 / 2200 0.9 % Sodium Chloride 1,000 ML 1000 / 2000 1000 / 2000 @ 125 mls/hr IVC .Q8H [facility] Rx#: [id number] Zosyn 3.375 GM In 0.9 % Sodium 100 / 300 100 / 200 100 / 200 Chloride (Mini-Bag +) 100 ML @ 25 mls/hr IVPB Q8H [facility] Rx#: [id number] Potassium Chloride 20 MEQ 262 / 262 Xylocaine 2 ML In 0.9 % Sodium Chloride 250 ML @ 131 mls/hr IVPB ONCE ONE Rx#:[id number] Vancocin 1,250 MG In 0.9 % 250 / 500 Sodium Chloride 250 ML @ 166.67 mls/hr IVPB Q12H [facility] Rx#: [id number] Output: Urine 600 / 2700 Estimated Blood Loss Other: Weight 94.4 kg Blood Glucose* 134 127 106 Patient Weight 10/26/18 23:59 Weight 94.4 kg - General physical appearance no distress - Respiratory normal expansion, normal respiratory effort - Cardiovascular Cardiovascular exam: Present: RRR - Abdomen Abdomen: Present: soft - Rectum other (perianal area with purulent drainage; erythema and induration; warm and tender to the touch) - Labs 10/25/18 08:34 10/25/18 08:34 Consult Discharge Plan - Plan Additional Instructions: Wound care- cleanse area with soap and water in the shower daily, home health to re-pack with 1/4 in plain gauze, cover with dry dressing and tape to secure. Complete daily and prn if soiled. Home health has been set up through [facility]. They will contact you with a date and time to complete admission. If you need to contact them please call #[phone] or #[phone]. Referrals: Willow Aguilar CNP [Advanced Practice Nurse] - 10/29/18 4:00 pm Yadi Delgadillo CNP [Primary Care Provider] - (Appointment has been requested)
[2018-10-26 12:41] LABS: Hematocrit 37.3 % (35.3-44.9); Mean Corpuscular HGB Conc 32.2 g/dL (31.6-35.5); Mean Corpuscular Hemoglobin 28.8 pg (28.0-33.3); Mean Corpuscular Volume 89.4 fL (83.0-100.0); Red Blood Count 4.17 M/mcL (3.82-4.97); White Blood Count 8.4 K/mcL (4.3-11.1)
--- NOTE | 2018-10-26 12:41 | Neurology Progress Note ---
Date of Encounter: 10/26/18 Time of Encounter: 12:39 Assessment and Plan (1) CVA (cerebral vascular accident) Current Visit: Yes Status: Acute The patient had acute infarct few days ago and had successful perirectal ascess excision surgery without neurological compromise. Patient's stroke work up already completed and no changes in regimen will be mad e at this time. Please continue post surgical and medical care. Will sign off at this time. Please re-consult if needed. Qualifiers: CVA mechanism: unspecified Qualified Code(s): I63.9 - Cerebral infarction, unspecified Subjective Principal diagnosis: Acute CVA Interval history: The patient is seen and examined at the bedside. The patient completed external excision of the perirectal ascess on the left side and surgical is uneventful and no complications reported. Patient is wide awake and reports no significant neurological discomforts. No significant weakness reported. Right hand tennis net maker is strong. Objective - Constitutional Vitals: Temp Pulse Resp BP Pulse Ox 97.6 F 75 16 135/87 97 10/26/18 12:10 10/26/18 12:10 10/26/18 12:10 10/26/18 12:10 10/26/18 12:10 - Neurological Exam Motor Examination: Present: full strength in all major muscle groups Motor examination - right side: 5/5: deltoids, biceps, triceps, wrist flexion, wrist extension, tennis net maker, hip flexors, tibialis Anterior, quadriceps, toe extension (EHL), plantarflexion Motor examination - left side: 5/5: deltoids, biceps, triceps, wrist flexion, wrist extension, hip flexors, tennis net maker, quadriceps, tibialis Anterior, toe extension (EHL), plantarflexion Sensation intact: Present: intact Posture: Present: other (No) Reflex and gait examination: other (Gait not tested) Mental Status Examination: Present: awake, alert, oriented to person, oriented to place, oriented to time, follows commands appropriately, answers questions appropriately, no agnosia, no aphasia, no aproxia Cranial nerve examination: Present: PERRL, EOMI, visual reeves intact, corneal reflexes brisk symmetrically, sensory to face intact, mastication intact, no facial asymmetry is present, no dysarthria, hearing is intact symmetrically, soft palate elevates bilaterally upon phonation, gag reflex intact, flexes SCM and trapezius muscles symmetrically with full power, tongue protrudes midline, no atrophy or facial fasiculations present Cerebellar examination: Present: no dysmetria, performs finger to nose and heel to maloney symmetrically without ataxia, no gait ataxia, no truncal ataxia, no difficulty with rapid alternating movements Results - Laboratory Findings CBC and BMP: 10/25/18 08:34 10/25/18 08:34 Abnormal lab findings: Abnormal lab results WBC 11.5 K/mcL (4.3-11.1) H 10/24/18 04:32 MPV 9.3 fL (9.4-12.4) L 10/25/18 08:34 Neutrophils # 9.4 K/mcL (1.6-8.9) H 10/24/18 04:32 Monocytes # 1.4 K/mcL (0.0-1.3) H 10/23/18 03:58 PT 15.0 Seconds (9.4-12.1) H 10/21/18 17:03 Sodium 133 mEq/L (136-145) L 10/21/18 17:03 Potassium 3.2 mEq/L (3.5-5.1) L 10/25/18 08:34 Carbon Dioxide 22 mEq/L (23-29) L 10/22/18 01:49 BUN/Creatinine Ratio 30 (6-26) H 10/24/18 04:32 Glucose 135 mg/dL (70-105) H 10/25/18 08:34 POC Glucose 134 mg/dL (70-99) H 10/25/18 20:23 Hemoglobin A1c 6.4 % (-5.6) H 10/22/18 01:49 Calculated Osmolality 302 (280-300) H 10/24/18 04:32 Calcium 8.4 mg/dL (8.6-10.3) L 10/25/18 08:34 Total Bilirubin 1.1 mg/dL (0.3-1.0) H 10/22/18 01:49 AST 40 Units/L (13-39) H 10/21/18 17:03 Creatine Kinase 20 Units/L (30-223) L 10/25/18 08:34 Albumin 3.2 g/dL (3.5-5.7) L 10/22/18 01:49 Albumin/Globulin Ratio 0.9 (1.1-2.2) L 10/22/18 01:49 HDL Cholesterol 26 mg/dL (40-59) L 10/23/18 03:58 Urine Clarity Cloudy (Clear) A 10/21/18 20:40 Ur Specific [place] 1.007 (1.010-1.025) L 10/21/18 20:40 Urine Ketones 15 mg/dL (Negative) H 10/21/18 20:40 Urine Blood Moderate (Negative) H 10/21/18 20:40 Urine Nitrite Positive (Negative) A 10/21/18 20:40 Urine Urobilinogen 2.0 mg/dL (Normal) H 10/21/18 20:40 Ur Leukocyte Esterase Large (Negative) H 10/21/18 20:40 Urine Microscopic WBC TNTC per hpf (0-3) H 10/21/18 20:40 Ur Squamous Epith Cells Many per lpf (None-Few) H 10/21/18 20:40 Urine Bacteria Many per hpf (None-Few) H 10/21/18 20:40 Urine Yeast Few per hpf (None Seen) H 10/21/18 20:40 Ur Culture Indicated? YES (NO) A 10/21/18 20:40 Vancomycin Trough 20 mcg/mL (5-10) H 10/26/18 04:15 Consult Discharge Plan - Plan Additional Instructions: Wound care- cleanse area with soap and water in the shower daily, home health to re-pack with 1/4 in plain gauze, cover with dry dressing and tape to secure. Complete daily and prn if soiled. Home health has been set up through [facility]. They will contact you with a date and time to complete admission. If you need to contact them please call #[phone] or #[phone]. Referrals: Willow Aguilar CNP [Advanced Practice Nurse] - 10/29/18 4:00 pm Yadi Delgadillo CNP [Primary Care Provider] - (Appointment has been requested)
[2018-10-26 12:42] LABS: Basophils % 0.2 %; Eosinophils # 0.1 K/mcL (0.0-0.6); Eosinophils % 0.7 %; Immature Granulocytes % 2.2 % (0-4); Lymphocytes # 0.8 K/mcL (0.6-4.6); Lymphocytes % 9.5 %; Mean Platelet Volume 8.9 fL (9.4-12.4); Monocytes # 0.4 K/mcL (0.0-1.3); Monocytes % 4.6 %; Platelet Count 320 K/mcL (140-400); Red Cell Distribution Width 12.3 % (11.5-14.5); Segmented Neutrophils % 82.8 %
[2018-10-26 13:02] LABS: Platelet Estimate Normal (Normal)
[2018-10-26 13:03] LABS: BUN/Creatinine Ratio 12 (6-26); Blood Urea Nitrogen 9 mg/dL (8-23); Calcium 8.4 mg/dL (8.6-10.3); Carbon Dioxide 26 mEq/L (23-29); Chloride 107 mEq/L (98-107); Glucose 131 mg/dL (70-105); Osmolality,Calculated 292 (280-300); Potassium 3.2 mEq/L (3.5-5.1); Sodium 141 mEq/L (136-145); eGFR For African Americans > 60 (> 60); eGFR For Non-African Americans > 60 (> 60)
[2018-10-26] MEDS ORDERED: Potassium Chloride 40 MEQ, Lidocaine 1% 2 ML in 0.9 % Sodium Chloride 500 ML IVPB ONE (16:10)
--- NOTE | 2018-10-26 21:57 | Operative Note ---
Date of procedure: 10/26/18 Pre-op diagnosis: perianal abscess Post-op diagnosis: same Procedure: incision and drainage of perianal abscess excisonal debridement of perianal abscess Implants: none Complications: none Anesthesia: MAC Local Anesthetics: 0.5% Sensorcaine HCL SubQ (cc) Surgeon: Kade Moreau Was there an podiatric assistant present: No Estimated blood loss (cc): 5 Specimen: aerobic and anaerobic cultures Condition: stable Disposition: PACU Procedure in Detail: The patient was brought into the operating room suite. placed in the supine position. Mechanical dvt prophylaxis was placed. She underwent smooth MAC anesthesia. Prepped and draped in the usual fashion. Preoperative antibiotics were given. A timeout was held identifying correct patient, pathology, procedure, and physician. The abscess was already draining through the left gluteal soft tissue. There was some necrotic tissue protruding, which was removed. I then placed my finger int he cavity, measuring about 4cm x 1cm in size (4sq cm). I used the bovie to open the abscess cavity with evacuation of the remaining purulent material. Aerobic and anaerobic cultures were taken. I then controlled for bleeding, then packed the wound with kerlix guaze. I then concluded the procedure and the patient was escorted out of the operating room suite in stable condition.
[2018-10-27] MEDS: Clindamycin 600 MG/50 ML 600 MG/50 ML IV.SOLN IVPB SCH ×2 (00:12→05:46)
[2018-10-27] MEDS: 0.9 % Sodium Chloride 1,000 ML IVC SCH (00:12)
[2018-10-27] MEDS: Nystatin POWDER 30 GM BOTTLE TP SCH ×4 (00:12→20:20)
[2018-10-27] MEDS: *HR* OxyCODONE/APAP 5/325 TABLET PO PRN (00:13)
[2018-10-27 03:53] LABS: Basophils % 0.3 %; Eosinophils % 0.1 %; Hemoglobin 11.1 g/dL (11.5-15.4); Immature Granulocytes % 2.8 % (0-4); Lymphocytes % 10.2 %; Mean Corpuscular HGB Conc 32.6 g/dL (31.6-35.5); Mean Corpuscular Hemoglobin 29.6 pg (28.0-33.3); Mean Corpuscular Volume 90.7 fL (83.0-100.0); Mean Platelet Volume 9.1 fL (9.4-12.4); Monocytes # 0.8 K/mcL (0.0-1.3); Monocytes % 8.1 %; Neutrophils # 7.7 K/mcL (1.6-8.9); Platelet Count 301 K/mcL (140-400); Red Blood Count 3.75 M/mcL (3.82-4.97); Red Cell Distribution Width 12.3 % (11.5-14.5); Segmented Neutrophils % 78.5 %; White Blood Count 9.8 K/mcL (4.3-11.1)
[2018-10-27 04:10] LABS: Platelet Estimate Normal (Normal)
[2018-10-27 04:12] LABS: BUN/Creatinine Ratio 18 (6-26); Blood Urea Nitrogen 14 mg/dL (8-23); Calcium 7.8 mg/dL (8.6-10.3); Carbon Dioxide 23 mEq/L (23-29); Chloride 110 mEq/L (98-107); Glucose 165 mg/dL (70-105); Magnesium 1.7 mg/dL (1.6-2.6); Osmolality,Calculated 296 (280-300); Potassium 3.6 mEq/L (3.5-5.1); Sodium 141 mEq/L (136-145); eGFR For African Americans > 60 (> 60); eGFR For Non-African Americans > 60 (> 60)
[2018-10-27] MEDS: Piperacillin/Tazobactam 3.375 GM in 0.9 % Sodium Chloride Mini Bag 100 ML IVPB SCH ×3 (05:23→20:18)
[2018-10-27] MEDS: *HR* Heparin 5,000 UNIT/ML VIAL SQ SCH ×2 (05:47→16:22)
[2018-10-27] MEDS ORDERED: Aminoglycoside Consult 1 EACH MC ONE (07:24)
[2018-10-27] MEDS ORDERED: *HR* OxyCODONE/APAP 5/325 TABLET PO PRN (07:43)
[2018-10-27] MEDS: Insulin LISPRO 300 UNITS/3 ML VIAL SQ SCH ×4 (07:59→20:19)
[2018-10-27] MEDS: Lactobacillus 1 EACH CAP.SPRINK PO SCH ×2 (08:12→20:19)
[2018-10-27] MEDS: Aspirin 325 MG TABLET PO SCH (08:12)
[2018-10-27] MEDS: *HR* OxyCODONE Immed Rel 5 MG TABLET PO PRN (09:18)
--- NOTE | 2018-10-27 11:17 | Internal Med Progress Note ---
Hospitalist Progress Note - Encounter Date of Encounter: 10/27/18 Time of Encounter: 10:00 - Subjective Interval History: Hospital course reviewed. Denies any worsening limb weakness or numbness. No headache, diplopia, dysarthria, facial droop, or gait instability. STates that her L buttock pain is tolerable. No fever overnight. - Exam Vitals: Temp Pulse Resp BP Pulse Ox 97.8 F 70 18 118/74 97 10/27/18 07:48 10/27/18 07:48 10/27/18 07:48 10/27/18 07:48 10/27/18 07:48 Exam: Constitutional: Not in distress Respiratory: Normal breath sounds with no crackles and wheezes bilaterally. CV: Heart rhythm is regular with normal rate. No gallop or murmur. GI: Soft, nontender. Dressing the perianal region c/d/i Neuro: CN II-XII intact, power and sensation fully intact in all 4 limbs. No cerebellar signs, pronator drift -ve, Babinski downgoing bilaterally MSK: No joint effusion or deformity - Assessment and Plan (1) Sepsis Current Visit: Yes Status: Acute Assessment and Plan: Secondary to perirectal abscess Wound culture from 10/23 grew staph epidermidis, pansensitive Underwent I&D on 10/26 uneventfully, intraop culture pending. Appreciate surgery input continue zosyn but will discontinue clindamycin and vancomycin follow up on final culture reports (2) Perirectal abscess Current Visit: Yes Status: Acute Assessment and Plan: Status post I&D and on antibiotics as above (3) CVA (cerebral vascular accident) Current Visit: Yes Status: Acute Assessment and Plan: Presented with right upper limb weakness and was found to have high posterior left frontal lobe infarct Although echocardiogram showed PFO, the location of CVA and appear to be embolic in origin Appreciate neurology input, no recommendation for AC at this point. Continue aspirin and statin (4) Urinary tract infection Current Visit: Yes Status: Acute Assessment and Plan: Urine culture from 10/21 grew pansensitive Escherichia coli On Zosyn currently for perirectal abscess as above (5) Diabetes Current Visit: Yes Status: Chronic Assessment and Plan: Low-dose sliding scale (6) Patent foramen ovale Current Visit: Yes Status: Chronic Assessment and Plan: Outpatient follow up, no recommendation for AC from Neurology will also defer the referral for PFO closure as outpatient (7) DVT prophylaxis Current Visit: Yes Status: Acute Assessment and Plan: SQ Heparin - Time Spent with Patient Total time spent is greater than 50% in coordination of care (as documented) at patient's floor/unit and/or counseling patient: 25 - 35 minutes Plan of Care Discussed with: patient Internal Medicine: Result - Labs CBC & Chem 7: 10/27/18 03:25 10/27/18 03:25 Labs: Short CBC 10/26/18 10/27/18 Range/Units 12:31 03:25 WBC 8.4 9.8 (4.3-11.1) K/mcL Hgb 12.0 11.1 L (11.5-15.4) g/dL Hct 37.3 34.0 L (35.3-44.9) % Plt Count 320 301 (140-400) K/mcL Neutrophils # 7.0 7.7 (1.6-8.9) K/mcL BMP 10/26/18 10/27/18 12:31 03:25 Sodium 141 141 Potassium 3.2 L 3.6 Chloride 107 110 H Carbon Dioxide 26 23 BUN 9 14 Creatinine 0.77 0.79 Glucose 131 H 165 H Calcium 8.4 L 7.8 L - ABG Interpretation ABG results: PT/INR, D-dimer PT 15.0 Seconds (9.4-12.1) H 10/21/18 17:03 Consult Discharge Plan - Plan Additional Instructions: Wound care- cleanse area with soap and water in the shower daily, home health to re-pack with 1/4 in plain gauze, cover with dry dressing and tape to secure. Complete daily and prn if soiled. Home health has been set up through [facility]. They will contact you with a date and time to complete admission. If you need to contact them please call #[phone] or #[phone]. Referrals: Willow Aguilar CNP [Advanced Practice Nurse] - 10/29/18 4:00 pm Yadi Delgadillo CNP [Primary Care Provider] - (Appointment has been requested) (1) Sepsis Qualifiers: Sepsis type: sepsis due to unspecified organism Sepsis acute organ dysfunction status: unspecified Qualified Code(s): A41.9 - Sepsis, unspecified organism (3) CVA (cerebral vascular accident) Qualifiers: CVA mechanism: unspecified Qualified Code(s): I63.9 - Cerebral infarction, unspecified (4) Urinary tract infection Qualifiers: Urinary tract infection type: site unspecified Hematuria presence: with hematuria Qualified Code(s): N39.0 - Urinary tract infection, site not specified; R31.9 - Hematuria, unspecified (5) Diabetes Qualifiers: Diabetes mellitus type: type 2 Diabetes mellitus [employer] insulin use: without detention use Diabetes mellitus complication status: with hyperglycemia Qualified Code(s): E11.65 - Type 2 diabetes mellitus with hyperglycemia
--- NOTE | 2018-10-27 12:43 | AcuteCareSurgery Progress Note ---
Date of Encounter: 10/27/18 Time of Encounter: 12:40 - Assessment and Plan (1) Perirectal abscess Current Visit: Yes Status: Acute 68F with recent CVA with perirectal abscess POD #1 s/p incision and drainage of left side perirectal abscess, exicionsal debridement of left perirectal abscess; HDS; no worsening neurological deficits diet as tolerated cont IV abx until 10/28 then transition to PO PO pain control sitz bath daily daily packing with wet to dry dressings acute care surgery will sign off; have the patient follow up in my wound clinic in two weeks to follow up for wound healing please call with any new questions or concerns Subjective Patient reports: no new complaints, afebrile Objective Vital Signs - Last 8 Hours Temp Pulse Resp BP Pulse Ox 10/27/18 07:48 97.8 F 70 18 118/74 97 10/27/18 05:31 98.1 F 70 16 133/77 Intake and Output 10/26/18 10/27/18 10/27/18 23:59 07:59 15:59 Intake Total 1100 / 3550 150 / 370 220 / 370 Output Total 0 / 11 400 / 400 Balance 1100 / 3539 -250 / -30 220 / -30 Intake: IV Fluids 1100 / 3550 150 / 250 100 / 250 0.9 % Sodium Chloride 1,000 ML 1000 / 3000 @ 125 mls/hr IVC .Q8H JENNFIER Rx#: [id number] Cleocin Premix 600 MG/50 ML 600 50 / 50 mg In 50 ml @ 50 mls/hr IVPB Q6HR JENNIFER Rx#:[id number] Zosyn 3.375 GM In 0.9 % Sodium 100 / 300 100 / 200 100 / 200 Chloride (Mini-Bag +) 100 ML @ 25 mls/hr IVPB Q8H JENNIFER Rx#: [id number] Oral 0 / 0 0 / 120 120 / 120 Output: Urine 0 / 1 400 / 400 Other: Meal Breakfast Percent of Meal Consumed 50% Weight 94 kg Blood Glucose* 164 116 127 Patient Weight 10/27/18 23:59 Weight 94 kg - General physical appearance no distress - Respiratory normal expansion, normal respiratory effort - Cardiovascular Cardiovascular exam: Present: RRR - Abdomen Abdomen: Present: soft - Rectum normal sphincter tone, no hemorrhoids, other (erythema; clean bases; less purulent drainage; ) - Neurologic CN 2-12 grossly intact - Psychiatric oriented to time, oriented to person, oriented to place - Labs 10/27/18 03:25 10/27/18 03:25 Diabetes panel 10/26/18 10/27/18 Range/Units 12:31 03:25 Sodium 141 141 (136-145) mEq/L Potassium 3.2 L 3.6 (3.5-5.1) mEq/L Chloride 107 110 H (98-107) mEq/L Carbon Dioxide 26 23 (23-29) mEq/L BUN 9 14 (8-23) mg/dL Creatinine 0.77 0.79 (0.60-1.20) mg/dL Glucose 131 H 165 H (70-105) mg/dL Calcium 8.4 L 7.8 L (8.6-10.3) mg/dL Calcium panel 10/26/18 10/27/18 Range/Units 12:31 03:25 Calcium 8.4 L 7.8 L (8.6-10.3) mg/dL Pituitary panel 10/26/18 10/27/18 Range/Units 12:31 03:25 Sodium 141 141 (136-145) mEq/L Potassium 3.2 L 3.6 (3.5-5.1) mEq/L Chloride 107 110 H (98-107) mEq/L Carbon Dioxide 26 23 (23-29) mEq/L BUN 9 14 (8-23) mg/dL Creatinine 0.77 0.79 (0.60-1.20) mg/dL Glucose 131 H 165 H (70-105) mg/dL Calcium 8.4 L 7.8 L (8.6-10.3) mg/dL Adrenal panel 10/26/18 10/27/18 Range/Units 12:31 03:25 Sodium 141 141 (136-145) mEq/L Potassium 3.2 L 3.6 (3.5-5.1) mEq/L Chloride 107 110 H (98-107) mEq/L Carbon Dioxide 26 23 (23-29) mEq/L BUN 9 14 (8-23) mg/dL Creatinine 0.77 0.79 (0.60-1.20) mg/dL Glucose 131 H 165 H (70-105) mg/dL Calcium 8.4 L 7.8 L (8.6-10.3) mg/dL Consult Discharge Plan - Plan Additional Instructions: Wound care- cleanse area with soap and water in the shower daily, home health to re-pack with 1/4 in plain gauze, cover with dry dressing and tape to secure. Complete daily and prn if soiled. Home health has been set up through [facility]. They will contact you with a date and time to complete admission. If you need to contact them please call #[phone] or #[phone]. Referrals: Willow Aguilar CNP [Advanced Practice Nurse] - 10/29/18 4:00 pm Yadi Delgadillo CNP [Primary Care Provider] - (Appointment has been requested)
[2018-10-28 02:28] LABS: Basophils % 0.4 %; Eosinophils # 0.2 K/mcL (0.0-0.6); Eosinophils % 2.1 %; Hematocrit 35.4 % (35.3-44.9); Hemoglobin 11.4 g/dL (11.5-15.4); Immature Granulocytes % 3.2 % (0-4); Lymphocytes # 1.9 K/mcL (0.6-4.6); Mean Corpuscular HGB Conc 32.2 g/dL (31.6-35.5); Mean Corpuscular Hemoglobin 29.4 pg (28.0-33.3); Mean Corpuscular Volume 91.2 fL (83.0-100.0); Monocytes # 0.8 K/mcL (0.0-1.3); Monocytes % 8.3 %; Platelet Count 350 K/mcL (140-400); Red Blood Count 3.88 M/mcL (3.82-4.97); Red Cell Distribution Width 12.2 % (11.5-14.5); White Blood Count 9.3 K/mcL (4.3-11.1)
[2018-10-28 02:36] LABS: Neutrophils # 6.1 K/mcL (1.6-8.9)
[2018-10-28 02:50] LABS: BUN/Creatinine Ratio 13 (6-26); Blood Urea Nitrogen 11 mg/dL (8-23); Calcium 8.3 mg/dL (8.6-10.3); Carbon Dioxide 26 mEq/L (23-29); Chloride 107 mEq/L (98-107); Glucose 110 mg/dL (70-105); Magnesium 1.6 mg/dL (1.6-2.6); Osmolality,Calculated 294 (280-300); Potassium 3.2 mEq/L (3.5-5.1); Sodium 142 mEq/L (136-145); eGFR For African Americans > 60 (> 60); eGFR For Non-African Americans > 60 (> 60)
[2018-10-28 03:07] LABS: Platelet Estimate Normal (Normal)
[2018-10-28] MEDS: Piperacillin/Tazobactam 3.375 GM in 0.9 % Sodium Chloride Mini Bag 100 ML IVPB SCH ×2 (04:59→13:22)
[2018-10-28] MEDS: *HR* Heparin 5,000 UNIT/ML VIAL SQ SCH (05:00)
[2018-10-28] MEDS: *HR* OxyCODONE Immed Rel 5 MG TABLET PO PRN (05:14)
[2018-10-28 07:46] VITALS: BP 153/94
[2018-10-28] MEDS: Insulin LISPRO 300 UNITS/3 ML VIAL SQ SCH ×2 (07:57→13:22)
[2018-10-28] MEDS: Lactobacillus 1 EACH CAP.SPRINK PO SCH (09:19)
[2018-10-28] MEDS: Aspirin 325 MG TABLET PO SCH (09:19)
[2018-10-28] MEDS: Nystatin POWDER 30 GM BOTTLE TP SCH (09:19)
--- NOTE | 2018-10-28 09:53 | Discharge Summary ---
- NOTES TO OUTPATIENT PROVIDER Notes to Outpatient Provider: Follow up in wound clinic in 2 weeks Orders not resulted at time of discharge: Pending orders 10/26/18 10:30 Culture,Anaerobic [RM] Routine Culture,Wound,with Gram Stain [RM] Routine Date of Encounter: 10/28/18 Time of Encounter: 07:45 - Discharge Diagnosis (1) Sepsis Priority: Primary Status: Acute Qualifiers: Sepsis type: sepsis due to unspecified organism Sepsis acute organ dysfunction status: unspecified Qualified Code(s): A41.9 - Sepsis, unspecified organism (2) Perirectal abscess Priority: Secondary Status: Acute (3) CVA (cerebral vascular accident) Priority: Secondary Status: Acute Qualifiers: CVA mechanism: unspecified Qualified Code(s): I63.9 - Cerebral infarction, unspecified (4) Urinary tract infection Priority: Secondary Status: Acute Qualifiers: Urinary tract infection type: site unspecified Hematuria presence: with hematuria Qualified Code(s): N39.0 - Urinary tract infection, site not specified; R31.9 - Hematuria, unspecified (5) Diabetes Priority: Secondary Status: Chronic Qualifiers: Diabetes mellitus type: type 2 Diabetes mellitus [facility] insulin use: without quarter doper use Diabetes mellitus complication status: with hyperglycemia Qualified Code(s): E11.65 - Type 2 diabetes mellitus with hyperglycemia (6) Patent foramen ovale Priority: Secondary Status: Chronic (7) DVT prophylaxis Priority: Secondary Status: Acute Hospital course: Ms. Oakes is a 68 year old female with history of diabetes and HTN who was admitted for CVA and sepsis secondary to perirectal abscess. MRI confirmed a small ischemic infarct in the high posterior left frontal lobe and although echocardiogram showed PFO, it was deemed that anticoagulation or surgical closure is warranted at this point after consulting Neurology. No residual deficits noted at the time of discharge. As for her perirectal abscess, she was taken to the OR for I&D on 10/26. Intraop culture was negative but superficial wound culture from 10/23 grew pansensitive staph epidermidis. She completed 5 days of broad spectrum abx and will be discharged home on 2 additional days of oral Augmentin and wound clinic follow-up in 2 weeks. Home health was arranged to assist with her dressing changes. Discharge discussed with: patient, nurse, social work, case management - Time Spent with Patient Total time spent providing and/or coordinating discharge services: 31 mins - Discharge Medications Prescriptions: New Amoxicillin/Clavulanate [Augmentin] 875 mg PO BIDWM 2 Days #4 tablet OxyCODONE/APAP 5/325 [Percocet 5/325 MG] 1 each PO Q6HR PRN 4 Days #16 tablet PRN Reason: Pain Continued Glimepiride [Amaryl] 2 mg PO QAM Pravastatin Sodium [Pravachol] 40 mg PO DAILY Adipex-P Home Medications: Adipex-P 10/21/18 [History] Glimepiride [Amaryl] 2 mg PO QAM 10/21/18 [History] Pravastatin Sodium [Pravachol] 40 mg PO DAILY 10/21/18 [History] Amoxicillin/Clavulanate [Augmentin] 875 mg PO BIDWM 2 Days #4 tablet 10/28/18 [Rx] OxyCODONE/APAP 5/325 [Percocet 5/325 MG] 1 each PO Q6HR PRN 4 Days #16 tablet 10/28/18 [Rx] Allergies/Adverse Reactions: Allergy/AdvReac Type Severity Reaction Status Date / Time No Known Allergies Allergy Verified 10/21/18 17:57 Date of admission: 10/23/18 16:57 Primary care physician: Yadi Delgadillo CNP Consults: 10/22/18 03:03 Consult to Occupational Therapy [CONS] Routine Comment: Evaluate, develop and implement POC Reason for Consult: CVA, right arm heaviness. Does patient have active BEDREST order?: No Is patient medically & hemodynamically stable?: Yes Patient assessed for mobility or mobilized this visit?: No Consult to Physical Therapy [CONS] Routine Comment: Evaluate, develop and implement POC Reason for Consult: CVA, right arm heaviness. Does patient have active BEDREST order?: No Is patient medically & hemodynamically stable?: Yes Patient assessed for mobility or mobilized this visit?: No 10/23/18 08:16 Consult to Neurology [CONS] Routine Consulting Provider: Neurology [facility] Reason for Consult: CVA Time Notified: 08:16 Call Completed: Yes 10/23/18 12:09 Consult to Surgery [CONS] Routine Consulting Provider: Acute Care Surgery Reason for Consult: I/D of R abscess Time Notified: 12:11 Call Completed: Yes 10/23/18 13:50 Consult to Appliance Installer [CONS] Routine Reason for SW Consult: Will need home health for daily wound care upon discharge 10/24/18 13:10 Consult to Surgery [CONS] Routine Consulting Provider: Acute Care Surgery Reason for Consult: New CT findings Time Notified: 13:11 Call Completed: Yes 10/24/18 13:32 Consult to Infectious Diseases [CONS] Routine Consulting Provider: Infectious Disease [facility] Reason for Consult: perianal abscess - with milti bacteria gram stain Time Notified: 13:36 Call Completed: Yes 10/25/18 16:21 Consult to Neurology [CONS] Routine Consulting Provider: Neurology [facility] Reason for Consult: eval for OR in light of recent stroke Call Completed: Yes - Constitutional Vitals: Temp Pulse Resp BP Pulse Ox 97.8 F 63 20 153/94 93 10/28/18 07:36 10/28/18 07:36 10/28/18 07:36 10/28/18 07:36 10/28/18 07:36 General appearance: Present: cooperative, A&O X 3, pleasant, no acute distress, answers questions appropriately Exam: Constitutional: Not in distress Respiratory: Normal breath sounds with no crackles and wheezes bilaterally. CV: Heart rhythm is regular with normal rate. No gallop or murmur. GI: Soft, nontender. Dressing the perianal region c/d/i Neuro: CN II-XII intact, power and sensation fully intact in all 4 limbs. No cerebellar signs, pronator drift -ve, Babinski downgoing bilaterally MSK: No joint effusion or deformity - Patient Status Disposition: Home Health Service Condition: Good Functional capacity at discharge: independent ambulation Overall status at discharge: patient is progressing back to baseline - Discharge Instructions Instructions: Sepsis (DC), Urinary Tract Infection in Women (DC), Diabetes Mellitus Type 2 in Adults (DC) Follow Up With: Willow Aguilar CNP [Advanced Practice Nurse] - 10/29/18 4:00 pm Yadi Delgadillo CNP [Primary Care Provider] - (Appointment has been requested) Additional Instructions: Wound care- cleanse area with soap and water in the shower daily, home health to re-pack with 1/4 in plain gauze, cover with dry dressing and tape to secure. Complete daily and prn if soiled. Home health has been set up through [facility]. They will contact you with a date and time to complete admission. If you need to contact them please call #[phone] or #[phone]. - Diet and Activity Activity: resume usual activities as tolerated Diet: diabetic diet
--- NOTE | 2018-10-28 10:00 | Physician Discharge Referral ---
Home Health/Hosp Referral Info Transfer to: Home Health Provider in Charge Post Discharge: PCP - Diagnosis (1) Sepsis Priority: Primary Status: Acute (2) Perirectal abscess Priority: Secondary Status: Acute (3) CVA (cerebral vascular accident) Priority: Secondary Status: Acute (4) Urinary tract infection Priority: Secondary Status: Acute (5) Diabetes Priority: Secondary Status: Chronic (6) Patent foramen ovale Priority: Secondary Status: Chronic (7) DVT prophylaxis Priority: Secondary Status: Acute - Respiratory Orders Smoking Cessation: Smoking cessation has been advised. For more information, call the [place] [employer] Quit Line at 6-144-LXQU-NOW. - Diet/Nutrition Diet/Nutrition Orders: No Concentrated Sweets - Services Needed Following services are medically necessary services: Nursing, Home Health Aide - Transfer Medications Prescriptions: Amoxicillin/Clavulanate [Augmentin] 875 mg PO BIDWM 2 Days #4 tablet Transmission Status: Pending to [facility] OxyCODONE/APAP 5/325 [Percocet 5/325 MG] 1 each PO Q6HR PRN 4 Days #16 tablet PRN Reason: Pain Prescription Printed Home Medications: Adipex-P 10/21/18 [History] Glimepiride [Amaryl] 2 mg PO QAM 10/21/18 [History] Pravastatin Sodium [Pravachol] 40 mg PO DAILY 10/21/18 [History] Amoxicillin/Clavulanate [Augmentin] 875 mg PO BIDWM 2 Days #4 tablet 10/28/18 [Rx] OxyCODONE/APAP 5/325 [Percocet 5/325 MG] 1 each PO Q6HR PRN 4 Days #16 tablet 10/28/18 [Rx] Allergies/Adverse Reactions: Allergy/AdvReac Type Severity Reaction Status Date / Time No Known Allergies Allergy Verified 10/21/18 17:57 Certification: Further, I certify that my clinical findings support that this patient is homebound (i.e. absences from home require considerable and taxing effort and are for medical reasons or [facility] or infrequently or short duration when for other reasons) because: Homebound Reason: Patient requires assistance of a person or device to safely l eave home Attestation: My signature below is to certify that this patient is under my care and that I, or nurse practitioner, or a physician's doctor's assistant working with me, has a [id number] encounter with this patient.
--- NOTE | 2018-10-28 14:48 | Infectious Disease Progress No ---
ID Progress Note Date of Encounter: 10/28/18 Time of Encounter: 14:41 - Subjective Subjective: Patient seen and examined. No acute events noted overnight. Pending operative debridement of the left perianal abscess later today. Denies fevers, chills, or rigors. Denies chest pain, shortness of breath, or cough. Denies nausea, vomiting, diarrhea, constipation. Reports one loose stool per day. Denies abdominal pain or urinary complaints. Reports some mild discomfort at the site of her abscess in the left buttock. Denies oral thrush or skin rashes. VS noted cultures reviewed - Objective CBC & Chem 7: 10/28/18 01:53 10/28/18 01:53 - Exam Vitals: Temp Pulse Resp BP Pulse Ox 97.8 F 63 20 153/94 93 10/28/18 07:36 10/28/18 07:36 10/28/18 07:36 10/28/18 07:36 10/28/18 07:36 Exam: GENERAL: Comfortable. Laying in bed NAD HEENT: MARLE[place], EOMI LUNGS: Good air sounds bilaterally, no wheezing or rhonchi CV: RRR, S1 S2 ABDOMEN: Soft, nontender, + bowel sounds EXT: Adequate perfusion. No edema NEURO: A&OX3; no focal deficit - Assessment and Plan (1) Sepsis Current Visit: Yes Status: Acute The patient had 3 sepsis criteria on admission. Likely secondary to perirectal abscess. Improved. White blood cell count normal. Afebrile. Tachycardia and tachypnea resolved. Blood cultures drawn 10/22/18 are no growth to date 2 sets. Qualifiers: Sepsis type: sepsis due to unspecified organism Sepsis acute organ dysfunction status: unspecified Qualified Code(s): A41.9 - Sepsis, unspecified organism SNOMED Code(s): 13095426 (2) Abscess and cellulitis of gluteal region Current Visit: Yes Status: Acute Location: Left gluteal soft tissue. Concern for necrotizing fascitis based on imaging, but CK level normal. CT 10/24/18: Subcutaneous soft tissue swelling L gluteal soft tissues with a 2.5 x 1.3 cm left perianal fluid collections. There is soft tissue gas extending from the perineum superiorly into the left gluteal region measuring at least 10 cm. Cultures buttock 10/23: pending but gram stain suggesting polymicrobial (moderate gram-positive cocci and many gram-negative rods). but finalized culture was only CoNS? s/p I&D of perianal abscess. 10/26/18 Currently on clindamycin, Zosyn, and vancomycin. patietn being discharged on oral augmentin which i think should be fine patient instructed to call my office if symptoms recur SNOMED Code(s): 622411999 (3) Perirectal abscess Current Visit: Yes Status: Acute SNOMED Code(s): 25999011 (4) Urinary tract infection Current Visit: Yes Status: Acute Asymptomatic. Urine culture positive for Escherichia coli. No indication to treat due to the patient being asymptomatic, but the antibiotics for her perirectal abscess will cover it anyways. Qualifiers: Urinary tract infection type: site unspecified Hematuria presence: with hematuria Qualified Code(s): N39.0 - Urinary tract infection, site not specified; R31.9 - Hematuria, unspecified SNOMED Code(s): 33447909 (5) Diabetes Current Visit: Yes Status: Chronic Recommend aggressive glucose monitoring and control to promote wound healing and prevent reinfection. Management per the primary team. Qualifiers: Diabetes mellitus type: type 2 Diabetes mellitus intermediate accountant insulin use: without intermediate accountant use Diabetes mellitus complication status: with hyperglycemia Qualified Code(s): E11.65 - Type 2 diabetes mellitus with hyperglycemia SNOMED Code(s): 49505297 - Stroke Contraindication Rehab Services Not Assessed: Returned to Prior Level of Function Consult Discharge Plan - Plan Instructions: Oxycodone/Acetaminophen (By mouth), Aspirin (By mouth), Amoxicil gino/Clavulanate Potassium (By mouth), Atorvastatin (By mouth), Urinary Tract Infection in Women (DC), Diabetes Mellitus Type 2 in Adults (DC), Sepsis (DC) Additional Instructions: Follow-up appointments: If there is not an appointment listed below, please call your physician and schedule a follow-up appointment. If you have congestive heart failure and your symptoms return, make an appointment with your physician. Medication List: Carry an up to date list of medications you are taking at all time. We have given you an updated medication list including any new medications that you have been prescribed. Please provide that list to your primary provider Symptoms: If your condition changes or you experience any of the following symptoms, notify your physician immediately: Unusual or worsening pain, fever, persistent nausea and vomiting, bleeding, increase in swelling (especially in your legs), sudden weight gain, extreme dizziness, chest pain, increased drainage or redness from a wound or incision. Go to the emergency department if you experience a problem with breathing. Weights: If you have a history of swelling or shortness of breath, weigh yourself daily and notify your physician if you have a weight gain of two or more pounds in one day or 5 or more pounds in a week. If you experience any of the warning signs for stroke: Sudden numbness or weakness of the face, arm or leg; especially on one side of the body, sudden confusion, trouble speaking or understanding, sudden trouble seeing in one or both eyes, sudden trouble walking, dizziness, loss of balance or coordination, sudden sever headache with no cause; Call 911 or go to the emergency room. Stroke is a medical emergency. Some risk factors for stroke: Age, cigarette smoking, diabetes, excessive alcohol consumption, family history, high blood pressure, overweight, physical inactivity, prior stroke, heart attack, diagnosis of carotid artery stenosis or other artery disease. If you smoke, STOP: Smoking or tobacco use significantly increases your risk of heart and lung disease. Your chance of disease greatly increases if you continue to smoke. For more information, call the [place] tobacco quit line for smoking cessation [id number] ( )Wound care- cleanse area with soap and water in the shower daily, home health to re-pack with 1/4 in plain gauze, cover with dry dressing and tape to secure. Complete daily and prn if soiled. Home health has been set up through [facility]. They will contact you with a date and time to complete admission. If you need to contact them please call #[phone] or #[phone]. Referrals: Willow Aguilar CNP [Advanced Practice Nurse] - 10/29/18 4:00 pm Yadi Delgadillo CNP [Primary Care Provider] - (Appointment has been requested) Prescriptions: Aspirin Enteric Coated [Aspirin EC] 81 mg PO DAILY #30 tablet. Prescription Printed Amoxicillin/Clavulanate [Augmentin] 875 mg PO BIDWM 2 Days #4 tablet Prescription Printed Atorvastatin [Lipitor] 80 mg PO HS #60 tablet Prescription Printed OxyCODONE/APAP 5/325 [Percocet 5/325 MG] 1 each PO Q6HR PRN 4 Days #16 tablet PRN Reason: Pain Prescription Printed
== END 2018-10-28 15:08 | disposition home health service (06) | DRG 853 ==
LOC: 3BNU 16:57 → EMEROOARM 16:57 → 3BNU 18:51 → SUATTDRO 10-23 16:57 → 2NENU 10-26 11:27
PROVIDERS: ADMIT Student in an Organized Health Care Education/Training Program; ATTEND Internal Medicine